=== PATIENT | male | born 1950 | race Caucasian/White ===

== ENCOUNTER → 2017-09-22 12:14 | Outpatient (CLI) | payer MEDICARE, OTHER, SELFPAY ==
--- NOTE | 2017-09-22 12:22 | XR_ITS ---
XR chest 2V HISTORY: ITS.REASON: AMIODARONE SURVEILLANCE ORDERING PHYSICIAN: SAMI Childress PATIENT AGE: 67 years COMPARISON: 04/15/2017 FINDINGS: Normal heart size. Biventricular pacemaker with right atrial lead also noted. Calcified nodes are present in the laurie and there is a calcified granuloma in the left upper lobe. The right hemidiaphragm is elevated. No lobar consolidation or collapse. No interstitial process apparent. Mild degenerative changes thoracic spine. IMPRESSION: 1. Cardiac pacemaker device present with evidence of old granulomatous disease. 2. No evidence of amiodarone lung toxicity
== END ==
PROVIDERS: PCP Family Medicine; Visit Provider Physician Assistant
DX: Z51.81 Encounter for therapeutic drug level monitoring (principal)
CPT/HCPCS: 71046

== ENCOUNTER → 2018-02-06 10:02 | Outpatient (CLI) | payer MEDICARE, OTHER, SELFPAY ==
--- NOTE | 2018-02-06 10:08 | XR_ITS ---
XR chest 2V HISTORY: ITS.REASON: LONGTERM HIGH RISK MED,A-FIB ORDERING PHYSICIAN: Brock Dawson PATIENT AGE: 67 years COMPARISON: PA and lateral chest 09/22/2017 FINDINGS: The cardiomediastinal silhouette and pulmonary vascularity are within normal limits. The lungs are clear without infiltrates, suspicious nodules, or pleural effusions. The left-sided cardiac pacemaker is again noted with 3 electrodes. There are calcified hilar nodes bilaterally. There is no pleural fluid. No acute bony abnormalities. IMPRESSION: Negative chest, no acute finding
== END ==
PROVIDERS: Visit Provider Internal Medicine Clinical Cardiac Electrophysiology
DX: I48.91 Unspecified atrial fibrillation (principal); Z79.899 Other long term (current) drug therapy
CPT/HCPCS: 71046

== ENCOUNTER → 2018-08-16 11:39 | Outpatient (CLI) | payer MEDICARE, OTHER, SELFPAY ==
--- NOTE | 2018-08-16 11:44 | NM_ITS ---
History and Indications: History of [place], hypertension, hyperlipidemia, family history, fatigue, palpitations and history of atrial fibrillation. Procedure: Patient received a 0.4 mg of intravenous Lexiscan, resting heart rate was 60 bpm, resting blood pressure 126/69, with intravenous Lexiscan maximum heart rate achieved was 61 beats per minute which is less than 85% of the maximum predicted heart rate and a blood pressure was 86/44. With Lexiscan patient complained of stomach discomfort, requiring intravenous Aminophyllin to reverse the symptoms. Electrocardiogram: Resting electrocardiogram showed a sinus rhythm, left atrial enlargement, electronically paced rhythm. With Lexiscan there is less than 1.[address] segment depression noted from the baseline EKG. The EKG portion of the Lexiscan Myoview is nondiagnostic. Cardiac stress and resting SPECT images: Cardiac stress and rest SPECT images were obtained using technetium 99 Myoview 32.1 mCi stress and 10.2 mCi at rest. Gated SPECT further analysis of segmental wall motion and calculation of ejection fraction also done. Cardiac stress and rest SPECT images show uniform myocardial activity without segmental perfusion abnormality, computer derived ejection fraction is 42% with no regional wall motion abnormality, right ventricle is normal size and contractility. Left ventricle is dilated both stress and rest. Conclusion: 1. The EKG portion of the Lexiscan Myoview is nondiagnostic. 2. No scintigraphic evidence of reversible ischemia seen, computer derived ejection fraction is 42% with no regional wall motion abnormality, right ventricle is normal size and contractility, left ventricle is dilated both stress and rest. 3. Abnormal Lexiscan Myoview study.
--- NOTE | 2018-08-16 12:28 | HMH.ITSHM ---
Current Home Medications as stated by this patient Lorenzo Hammer or cash applications representative. []ASA AMIODARONE BISOPROLOL ROSOVASTIN DULOXETINE WARFARIN
== END ==
PROVIDERS: PCP Physician Assistant; Visit Provider Physician Assistant
DX: R07.9 Chest pain, unspecified (principal); I48.91 Unspecified atrial fibrillation; R00.2 Palpitations; E78.5 Hyperlipidemia, unspecified
CPT/HCPCS: 78452; 93017; A9502; J2785

== ENCOUNTER → 2018-12-09 10:06 | Outpatient (CLI) | payer MEDICARE, OTHER, SELFPAY ==
--- NOTE | 2018-12-09 10:21 | XR_ITS ---
XR shoulder LT min 2V Ordering Physician: Marco Churchill MD Patient Age: 68 years: Male HISTORY: ITS.REASON: ACUTE PAIN OF LEFT SHOULDER Pain for 3 weeks TECHNIQUE: 3 views left shoulder COMPARISON :Chest film from 08/03/2018 FINDINGS The glenohumeral joint appears intact. The humeral head and neck are intact. Normal relationships. Trace degenerative changes left AC joint. Scapula appears intact. Upper left lung left lung apex upper left ribs appear intact. Pacemaker overlying upper left chest as was seen on July 2018.. IMPRESSION: Left shoulder intact. No acute findings Glenohumeral joint intact, unremarkable. Mild degenerative changes AC joint.
== END ==
PROVIDERS: PCP Family Medicine; Visit Provider Family Medicine
DX: M25.512 Pain in left shoulder (principal)
CPT/HCPCS: 73030

== ENCOUNTER → 2019-03-21 14:33 | Outpatient (CLI) | payer MEDICARE, OTHER, SELFPAY ==
--- NOTE | 2019-03-21 14:47 | XR_ITS ---
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 Mild prominence of the left ventricle. No evidence of CHF. The right hemidiaphragm is elevated with compressive atelectatic changes in the right lung base. The remaining lungs are clear. No acute bony anomalies. IMPRESSION: As above, no change with no acute finding.
== END ==
PROVIDERS: PCP Family Medicine; Visit Provider Internal Medicine Clinical Cardiac Electrophysiology
DX: Z79.899 Other long term (current) drug therapy (principal)
CPT/HCPCS: 71046

== ENCOUNTER → 2019-09-11 08:53 | Outpatient (CLI) | payer MEDICARE, OTHER, SELFPAY ==
--- NOTE | 2019-09-11 09:01 | XR_ITS ---
PROCEDURE: XR CHEST 2V CLINICAL HISTORY: UPPER BACK PAIN COMPARISON: CXR2V XR chest 2V from 09/22/2017 CXR2V XR chest 2V from 02/06/2018 CXR2V XR chest 2V from 08/03/2018 FINDINGS: There is a biventricular pacemaker present also with a right atrial lead. Borderline cardiomegaly. The pacemaker is from the left subclavian approach and not significantly changed. No CHF. Right hemidiaphragm is elevated with atelectatic changes in the right lung base which have developed since the previous exam. There are degenerative changes in the thoracic spine IMPRESSION: Elevated right hemidiaphragm with right basilar atelectasis with biventricular pacemaker in place Dictated by: Eddie Villeda MD 09/11/2019 15:08 Electronically signed by Eddie Villeda MD in [place] 09/11/2019 15:08
== END ==
PROVIDERS: PCP Family Medicine; Visit Provider Family Medicine
DX: M54.9 Dorsalgia, unspecified (principal)
CPT/HCPCS: 71046

== ENCOUNTER → 2019-12-21 11:00 | Outpatient (CLI) | payer MEDICARE, OTHER, SELFPAY ==
--- NOTE | 2019-12-21 11:11 | XR_ITS ---
PROCEDURE: XR CHEST 2V CLINICAL HISTORY: AMIODARONE SURVEILLANCE COMPARISON: CXR2V XR chest 2V from 02/06/2018 CXR2V XR chest 2V from 08/03/2018 XR CHEST 2V from 09/11/2019 FINDINGS: There is elevation the right hemidiaphragm with right basilar atelectatic or fibrotic change. This is similar when compared to the previous exam. Biventricular pacemaker is present from left subclavian approach with a right atrial lead. There is evidence of old granulomatous disease. No evidence of CHF. No acute bony findings. IMPRESSION: Biventricular pacemaker present with elevated right hemidiaphragm and right basilar atelectasis overall not significantly changed. The findings are not convincing for amiodarone lung toxicity. Dictated by: Eddie Villeda MD 12/21/2019 12:33 Electronically signed by Eddie Villeda MD in [place] 12/21/2019 12:33
[2019-12-21 12:43] LABS: Chloride 104 mmol/L (98-107); Potassium 4.4 mmoL/L (3.5-5.1); Sodium 140 mmol/L (136-145)
[2019-12-21 12:45] LABS: Alanine Aminotransferase 17 U/L (12-78); Aspartate Amino Transferase 29 U/L (17-59); Blood Urea Nitrogen 18 mg/dl (9-20); Estimated Glomerular Filt Rate 55 ml/min (>60); GFR (African American) 66 ML/MIN (>60)
[2019-12-21 12:46] LABS: Albumin Level 4.1 g/dl (3.5-5.0); Albumin/Globulin Ratio 1.8 (1.1-1.8); Alkaline Phosphatase 52 U/L (38-126); Anion Gap 9.4 mEq/L (5-15); Bilirubin,Total 0.9 mg/dl (0.2-1.3); Calcium 9.2 mg/dl (8.4-10.2); Carbon Dioxide 31 mmol/L (22.0-30.0); Globulin 2.3 g/dL (1.3-3.2); Glucose 88 mg/dl (74-100); Total Protein,Serum 6.4 g/dl (6.3-8.2)
[2019-12-21 13:17] LABS: Thyroid Stimulating Hormone < 0.02 uIU/mL (0.465-4.68)
== END ==
PROVIDERS: PCP Family Medicine; Visit Provider Internal Medicine Clinical Cardiac Electrophysiology
DX: I48.91 Unspecified atrial fibrillation (principal); Z79.899 Other long term (current) drug therapy
CPT/HCPCS: 36415; 71046; 80053; 84443

== ENCOUNTER → 2020-11-28 09:22 | Outpatient (CLI) | payer MEDICARE, OTHER, SELFPAY | PROVIDERS: PCP Family Medicine; Visit Provider Physician Assistant Medical | DX: Z20.822 Contact with and (suspected) exposure to COVID-19 (principal) | CPT/HCPCS: U0003 ==

== ENCOUNTER 2021-06-22 17:38 | Emergency (ER) | payer MEDICARE, OTHER, SELFPAY ==
--- NOTE | 2021-06-22 17:36 | ECG_ITS ---
APPROVED REPORT Exam: Resting ECG HR:101 bpm ECG Measurements Heart Rate 101 AXES AL 138 P 40 QRSd 108 QRS -61 QT 360 T 87 QTc 466 Conclusion Electronic ventricular pacemaker Electronically signed by : Taurus Boyd MD 06/28/2021 08:32:48
[2021-06-22 17:39] VITALS: BP 134/93; PULSE 105; RESP 18; TEMP 37; O2SAT 96; BMI 24.3
[2021-06-22 17:40] VITALS: BMI 24.3
--- NOTE | 2021-06-22 17:41 | XR_ITS ---
PROCEDURE INFORMATION: Exam: XR Chest Exam date and time: 06/22/2021 5:41 PM Age: 70 years old Clinical indication: Pain; Other: Shocked by defibulator; Prior surgery; Surgery date: 6+ months; Additional info: Shocked by defib TECHNIQUE: Imaging protocol: XR of the chest. Views: 1 view. COMPARISON: CR XR CHEST 2V 12/21/2019 11:22 AM FINDINGS: Tubes, catheters and devices: AICD in place with leads in unchanged position. Lungs: Elevated right hemidiaphragm with right basal atelectasis/scarring, unchanged. No appreciable pulmonary edema. No focal consolidation. Pleural spaces: No large pleural effusion. No pneumothorax. Heart/Mediastinum: Cardiomediastinal silhouette is unchanged. Bones/joints: No acute osseous abnormality. Soft tissues: Unremarkable. IMPRESSION: No evidence of acute cardiopulmonary disease.
--- NOTE | 2021-06-22 17:50 | HMH.EDGENADL ---
ED Disposition Clinical Impression: ICD (implantable cardioverter-defibrillator) discharge Chest pain Qualifiers: Chest pain type: other chest pain Qualified Code(s): R07.89 - Other chest pain Disposition: Home, Self-Care Condition on Discharge: Good Additional Instructions: With cardiology tomorrow at 11 AM, experienced any repeat chest pain, or if any concerns overnight return to the emergency department. Referrals: Marco Churchill MD [Primary Care Provider] - Vikram Blackmon MD [Staff Physician] - - Critical Care Critical Care Time: No Attestation: On 06/22/21, the high probability of a clinically significant, sudden or life threatening deterioration of the following system(s) required my full and direct attention, intervention and personal management. The time I documented below is in addition to time spent performing reported procedures but includes the following listed in this critical care notation. Medical Decision Making - Medical Records Medical records reviewed: Yes: I reviewed the patient's medical records. - Edwin Inquiry Pt receiving controlled substance: No Vital Signs: 06/22/21 17:39 06/22/21 18:30 Temperature 98.6 F Temperature Source Oral Pulse Rate 86 Pulse Rate [Left Radial] 105 H Respiratory Rate 18 Blood Pressure 120/79 Blood Pressure [Right Arm] 134/93 H Blood Pressure Mean [Right Arm] 106 Blood Pressure Source Automatic Cuff Blood Pressure Source [Right Arm] Automatic Cuff Blood Pressure Position Sitting Blood Pressure Position [Right Arm] Sitting 02 Sat by Pulse Oximetry 96 96 Oxygen Delivery Method Room Air Room Air - Lab Data Lab results reviewed: Yes: I reviewed the patient's lab results. Lab Results 06/22/21 17:30: WBC 9.3, RBC 4.78, Hgb 15.6, Hct 47.9, MCV 100.2 H, MCH 32.5 H, MCHC 32.5, RDW 13.1, Plt Count 227, MPV 9.2, Neut % (Auto) 64.1, Lymph % (Auto) 21.6, [place] % (Auto) 8.6, Eos % (Auto) 4.1, Baso % (Auto) 1.5, Neut # (Auto) 5.9, Lymph # (Auto) 2.0, [place] # (Auto) 0.8, Eos # (Auto) 0.4, Baso # (Auto) 0.1 06/22/21 17:30: Sodium 144, Potassium 3.7, Chloride 104, Carbon Dioxide 29, Anion Gap 14.7, BUN 16, Creatinine 1.10, Estimated Creat Clear 79, Estimated GFR 66, Est GFR ( Amer) 80, Glucose 93, Calcium 9.8, Troponin I 0.09 H Result diagrams: 06/22/21 17:30 06/22/21 17:30 Orders (Tests/Meds): ORDERS Category Date Time Status Troponin I Q3H Lab 06/22/21 20:15 Received Troponin I Q3H Lab 06/22/21 23:45 Ordered Medical Decision Narrative: Patient is a 70-year-old male presents emergency department with chief complaint of icd appointment. Patient states this occurred 3 times this afternoon. He does admit not having taken his bisoprolol for 3 days. Diagnosis in this patient includes ACS, A. fib with RVR, pacemaker deployment among others. Given this interrogated the pacemaker, and EKG, CBC, CMP troponin, chest x-ray. Troponin showed mild elevation, believe this is consistent with the pacemaker deployment as were opposed to ACS however will obtain a second troponin. Patient well-appearing here in the emergency department. ECG showed paced rhythm. The patient did have bouts of Atrial tackycardia for which the pacemaker deployed appropriately. Patient instructed to taking his home medication, he can follow-up at 11 AM in clinic with cardiology tomorrow morning. General Adult HPI - General Stated complaint: SHOCKED BY DEFIB Time Seen by Provider: 06/22/21 17:51 - History of Present Illness HPI narrative: Patient is a 70-year-old male presenting to the emergency department with chief complaint of ICD shock. Patient states that he was feeling well with working on at the back of a tractor, straining did not have any chest pain did not have any shortness of breath when he felt his ICD go off. He states that he went out 3 times in public at a mule kicking him in his chest. He does admit that he has not recently taken one of his med
--- NOTE | 2021-06-22 18:06 | PC.NURSE ---
CALLED [employer] FOR INTERROGATION OF AICD
[2021-06-22 18:14] LABS: Basophils # 0.1 K/mm3 (0-0.2); Basophils % 1.5 % (0.1-2.0); Eosinophils # 0.4 K/mm3 (0.0-0.4); Eosinophils % 4.1 % (0.1-12.0); Hematocrit 47.9 % (42.0-52.0); Hemoglobin 15.6 g/dL (14.1-18.0); Lymphocytes % 21.6 % (10-50); Mean Corpuscular HGB Conc 32.5 g/dL (31.8-35.4); Mean Corpuscular Hemoglobin 32.5 pg (27.0-31.2); Mean Corpuscular Volume 100.2 fl (80-94); Mean Platelet Volume 9.2 fl (7.4-10.4); Monocytes # 0.8 K/mm3 (0.1-1.0); Monocytes % 8.6 % (1.7-9.3); Neutrophils # 5.9 K/mm3 (1.8-7.8); Neutrophils % 64.1 % (37.0-80.0); Platelet Count 227 K/mm3 (142-424); Red Blood Count 4.78 M/mm3 (4.60-6.20); Red Cell Distribution Width 13.1 % (11.5-17.5); White Blood Count 9.3 K/mm3 (4.8-10.8)
[2021-06-22 18:17] LABS: Chloride 104 mmol/L (98-107); Potassium 3.7 mmoL/L (3.5-5.1); Sodium 144 mmol/L (136-145)
[2021-06-22 18:20] LABS: Anion Gap 14.7 mEq/L (5-15); Blood Urea Nitrogen 16 mg/dl (9-20); Carbon Dioxide 29 mmol/L (22.0-30.0); Creatinine Clearance Estimated 79 mL/min (50-200); Estimated Glomerular Filt Rate 66 ml/min (>60); GFR (African American) 80 ML/MIN (>60)
[2021-06-22 18:21] LABS: Calcium 9.8 mg/dl (8.4-10.2); Glucose 93 mg/dl (74-100)
[2021-06-22 18:30] VITALS: BP 120/79; PULSE 86; O2SAT 96
[2021-06-22 18:33] LABS: Troponin I 0.09 ng/ml (0.00-0.034)
--- NOTE | 2021-06-22 20:03 | PC.NURSE ---
Ember with Cardiology assisted pacemaker interrogation with rep. Per Francesco the rep, Pt was in atrial tach and shocked 3x. Increased the threshold from of vfib from 200 to 210 and therapy from 5 sec to 10 sec. Pt has not been taking his Bisoprolol for several days d/t forgetting to pick it up . Pt to take bisoprolol and follow up with cardiology tomorrow. Pt seees outside cardiology but can see Dr. Blackmon tomorrow at 11am if he is unable to see his own.
--- NOTE | 2021-06-22 20:15 | PC.NURSE ---
notified MD l[facility] critical trop
[2021-06-22 21:40] LABS: Troponin I 1.15 ng/ml (0.00-0.034)
--- NOTE | 2021-06-22 21:42 | PC.NURSE ---
Dr. Santos s/collette Esquivel
[2021-06-22 21:51] VITALS: BP 117/78; PULSE 80; RESP 16; TEMP 37; O2SAT 96
== END 2021-06-22 21:54 | disposition home or self-care (01) ==
PROVIDERS: Emergency Provider Emergency Medicine; PCP Family Medicine
DX: T82.118A Breakdown (mechanical) of other cardiac electronic device, initial encounter (principal); Z45.02 Encounter for adjustment and management of automatic implantable cardiac defibrillator; Z88.0 Allergy status to penicillin; Z87.891 Personal history of nicotine dependence
CPT/HCPCS: 71045; 80048; 84484; 85025; 93005; 96365; 99283

== ENCOUNTER → 2021-09-02 14:40 | Outpatient (CLI) | payer MEDICARE, OTHER, SELFPAY ==
[2021-09-02 15:07] LABS: Adenovirus,PCR Not Detected (NotDetected); Bordetella Pertussis Not Detected (NotDetected); Chlamydophila Pneumoniae, PCR Not Detected (NotDetected); Coronavirus 229E Not Detected (NotDetected); Coronavirus NL63 Not Detected (NotDetected); Coronavirus OC43 Not Detected (NotDetected); Coronovirus HKU1,PCR Not Detected (NotDetected); Human Metapneumovirus Not Detected (NotDetected); Influenza A, PCR Not Detected (NotDetected); Influenza AH1, 2009 Not Detected (NotDetected); Influenza AH1, PCR Not Detected (NotDetected); Influenza AH3,PCR Not Detected (NotDetected); Influenza B, PCR Not Detected (NotDetected); Mycoplasma Pneumoniae, PCR Not Detected (NotDetected); Parainfluenza 1, PCR Not Detected (NotDetected); Parainfluenza 2, PCR Not Detected (NotDetected); Parainfluenza 3, PCR Not Detected (NotDetected); Parainfluenza 4, PCR Not Detected (NotDetected); Respiratory Syncytial Virus Not Detected (NotDetected); Rhinovirus/Enterovirus Not Detected (NotDetected)
[2021-09-02 15:10] LABS: Mean Corpuscular HGB Conc 32.8 g/dL (31.8-35.4); Mean Corpuscular Hemoglobin 33.1 pg (27.0-31.2); Mean Corpuscular Volume 101.2 fl (80-94); Red Blood Count 4.84 M/mm3 (4.60-6.20); White Blood Count 5.2 K/mm3 (4.8-10.8)
[2021-09-02 15:11] LABS: Basophils # 0.1 K/mm3 (0-0.2); Basophils % 1.5 % (0.1-2.0); Eosinophils # 0.3 K/mm3 (0.0-0.4); Eosinophils % 5.1 % (0.1-12.0); Lymphocytes # 1.5 K/mm3 (0.7-4.5); Lymphocytes % 28.3 % (10-50); Mean Platelet Volume 8.9 fl (7.4-10.4); Monocytes # 0.4 K/mm3 (0.1-1.0); Monocytes % 7.7 % (1.7-9.3); Neutrophils % 57.3 % (37.0-80.0); Platelet Count 161 K/mm3 (142-424)
[2021-09-02 15:41] LABS: Strep Scrn Group A (Rapid) Negative (Negative)
[2021-09-02 17:35] LABS: Coronavirus 19, PCR Detected (NotDetected)
== END ==
PROVIDERS: PCP Family Medicine; Visit Provider Family Medicine
DX: U07.1 COVID-19 (principal)
CPT/HCPCS: 36415; 85025; 87430; 87581; 87632; 87798; C9803; U0003; U0005

== ENCOUNTER → 2022-10-28 12:07 | Outpatient (CLI) | payer MEDICARE, OTHER, SELFPAY ==
--- NOTE | 2022-10-28 12:12 | XR_ITS ---
FINAL REPORT CLINICAL HISTORY: BRONCHITIS COMPARISON: 06/22/2021 FINDINGS: TWO-VIEW CHEST The heart size is normal. There is an elevated right hemidiaphragm. There is mild right base atelectasis or scar. Left subclavian ICD is present. There is no pneumothorax. IMPRESSION: Right base atelectasis or scar. Reviewed, Interpreted and Dictated by Messi Wise III, MD Transcribed by Misty Robins Authenticated and [facility]
== END ==
PROVIDERS: PCP Family Medicine; Visit Provider Physician Assistant
DX: J40 Bronchitis, not specified as acute or chronic (principal)
CPT/HCPCS: 71046

== ENCOUNTER 2023-06-25 13:39 | Emergency (ER) | payer MEDICARE, OTHER, SELFPAY ==
[2023-06-25 14:00] VITALS: BP 123/76; PULSE 64; RESP 17; TEMP 36.7; O2SAT 98; BMI 23.3
--- NOTE | 2023-06-25 14:11 | EXP.UTC ---
Discharge Plan Disposition Patient Disposition: Home, Self-Care Condition: Good Prescriptions Prescriptions: New clindamycin HCl 300 mg capsule 300 mg PO Q8H 7 Days Qty: 21 0RF Triple Antibiotic 3.5mg-400 unit- 5,000 unit/gram ointment 1 applic topical TID 10 Days Qty: 30 0RF Rx Instructions: apply to opening on finger No Action rosuvastatin 20 MG tablet 20 mg PO DAILY duloxetine 30 MG capsule,delayed release(DR/EC) 30 mg PO DAILY bisoprolol fumarate 5 mg tablet 5 mg PO DAILY Referrals Follow up/Referrals: Marco Churchill MD [Primary Care Provider] - See instructions Activity Restrictions/Add. Instructions Additional Instructions/Restrictions: Take medication as prescribed Follow up with Hand you may call office for appointment [phone] Soak hand in warm water and epson salt may help to clean the wound GO straight to ER if you have worsening of swelling or become unable to bend or move finger Clinical Impressions Clinical Impression: Foreign body finger Instructions Patient Instructions: Clindamycin, DI for Wound Infection Discharge ED Provider: Felicita Hunter [facility] [place] General Stated complaint: splinter in right thumb Mode of Arrival: Ambulatory Source of Information: Patient Limitations: No Limitations Time Seen by Provider: 06/25/23 14:11 Description of Symptoms (Recalled from Triage Doc. by RN): PATIENT C/O SPLINTER IN THUMB SINCE YESTERDAY HEENT Symptoms (Recalled from RN notes): No Resp Symptoms (Recalled from RN notes): No Skin Symptoms (Recalled from RN notes): Yes MS Symptoms (Recalled from RN notes): No Functional Status (Recalled from RN notes): WNL History of Present Illness Provider Complaint: Patient states that he has a piece of wood that went into his right thumb States that he was able to get some of it out but feels like a large piece remains deep into his thumb States that today his thumb is sore and hurts to touch it Related Data Home Medications Medication Instructions Recorded Confirmed duloxetine 30 mg capsule,delayed 30 mg PO DAILY Anxiety 08/03/18 06/23/21 release rosuvastatin 20 mg tablet 20 mg PO DAILY High cholesterol 08/03/18 06/23/21 bisoprolol fumarate 5 mg tablet 5 mg PO DAILY htn 06/23/21 06/23/21 Previous Rx's Medication Instructions Recorded clindamycin HCl 300 mg capsule 300 mg PO Q8H 7 days #21 caps 06/25/23 neomycin-bacitracn Zn-polymyx 3.5 1 applic topical TID 10 days #30 06/25/23 mg-400 unit-5,000 unit/gram top grams oint (Triple Antibiotic) Allergies Allergy/AdvReac Type Severity Reaction Status Date / Time Penicillin Allergy Unknown Uncoded 06/25/19 15:39 Worker's Comp Is this a Worker's Comp case?: No [facility] Disclaimer: The information contained in this section may have been updated after the patient was seen, as this information can be updated by other users. Social History Smoking Status: Former smoker alcohol intake: never current occupational status: retired Travel in the last 8 weeks: Inside the [place] ROS Obtained: Yes All systems reviewed & no additional complaints except as documented and Yes Systems reviewed as appropriate & no additional complaints except as documented ENT Ears, Nose, Mouth, and Throat: Reports system reviewed and no additional complaints, except as documented and Reports as per HPI Cardiovascular Cardiovascular: Reports system reviewed and no additional complaints, except as documented and Reports as per HPI Respiratory Respiratory: Reports system reviewed and no additional complaints, except as documented and Reports as per HPI Gastrointestinal Gastrointestingal: Reports system reviewed and no additional complaints, except as documented and as per HPI Musculoskeletal Musculoskeletal: Reports system reviewed and no additional complaints, except as documented and Reports as per HPI Integumentary/Breasts Skin/Breast: Reports system review
--- NOTE | 2023-06-25 14:16 | XR_ITS ---
PROCEDURE INFORMATION: Exam: XR Right Hand Exam date and time: 06/25/2023 2:22 PM Age: 72 years old Clinical indication: Injury or trauma; Other: Wood stuck in 1st digit; Additional info: Foreign body right thumb TECHNIQUE: Imaging protocol: Radiologic exam of the right hand. Views: 3 or more views. Total images: 3 COMPARISON: No relevant prior studies available. FINDINGS: Bones/joints: Degenerative changes of the interphalangeal joints. No evidence of acute fracture or dislocation. Soft tissues: No other radiopaque foreign bodies. Soft tissues are within normal limits. Other findings: Radiopaque density overlies the middle phalanx of the index finger. IMPRESSION: 1. Radiopaque density overlies the middle phalanx of the index finger. 2. No other radiopaque foreign bodies. 3. Degenerative changes of the interphalangeal joints. 4. No evidence of acute fracture or dislocation.
[2023-06-25 15:03] VITALS: BP 123/76; PULSE 64; RESP 17; TEMP 36.7; O2SAT 98
== END 2023-06-25 15:12 | disposition home or self-care (01) ==
PROVIDERS: Emergency Provider Nurse Practitioner; PCP Family Medicine
DX: S60.351A Superficial foreign body of right thumb, initial encounter (principal); Z87.891 Personal history of nicotine dependence; W45.8XXA Other foreign body or object entering through skin, initial encounter
CPT/HCPCS: 73130; 99204; 99212; G0463

== ENCOUNTER 2023-09-27 10:42 | Outpatient (CLI) | payer MEDICARE, OTHER, SELFPAY ==
--- NOTE | 2023-09-27 | XR_ITS ---
FINAL REPORT CLINICAL HISTORY: Lower back pain FINDINGS: LUMBAR SPINE Five views demonstrate no acute fracture. There are moderate degenerative changes with osteophytes. Mild leftward curvature is identified. There is no malalignment. IMPRESSION: Moderate degenerative changes. Reviewed, Interpreted and Dictated by Messi Wise III, MD Transcribed by Misty Robins Authenticated and [facility]
--- NOTE | 2023-09-27 | XR_ITS ---
FINAL REPORT CLINICAL HISTORY: Rt elbow pain FINDINGS: Right elbow Three views were obtained. There is no acute fracture or dislocation. There are mild degenerative changes. Posterior soft tissue swelling is seen. There is small calcification adjacent to the radial head. IMPRESSION: Degenerative changes as above. Reviewed, Interpreted and Dictated by Messi Wise III, MD Transcribed by Misty Robins Authenticated and [facility]
== END 2023-09-27 23:59 ==
PROVIDERS: PCP Family Medicine; Visit Provider Family Medicine
DX: M25.521 Pain in right elbow (principal); R10.9 Unspecified abdominal pain; M54.50 Low back pain, unspecified
CPT/HCPCS: 72110; 73080

== ENCOUNTER 2024-02-09 06:14 | Outpatient (CLI) | payer MEDICARE, OTHER, SELFPAY ==
--- NOTE | 2024-02-09 06:39 | CT_ITS ---
FINAL REPORT CLINICAL HISTORY: LOW BACK PAIN COMPARISON: None FINDINGS: CT LUMBAR SPINE TECHNIQUE: Axial images were performed through the lumbar spine by computed tomography. Sagittal and coronal reconstruction images were also performed. This study was performed with techniques to keep radiation doses as low as reasonably achievable, (ALARA). Individualized dose reduction techniques using automated exposure control or adjustment of mA and/or kV according to the patient's size were employed. FINDINGS: No fracture is present. Minimal dextroscoliosis is present. T12-L1: There is a moderate annular bulge with mild central canal stenosis. L1-L2: A moderate annular bulge is present with mild central canal stenosis and mild bilateral neural foraminal narrowing. L2-L3: A moderate annular bulge is present with moderate central canal stenosis and moderate neural foraminal narrowing. L3-L4: A moderate annular bulge and moderate facet arthropathy is present, with moderate central canal stenosis, and moderate to severe bilateral neural foraminal narrowing. L4-L5: A moderate annular bulge and facet arthropathy are present, with mild central canal stenosis, and moderate bilateral neural foraminal narrowing. L5-S1: A small annular bulge is present with mild facet arthropathy, severe left and moderate right neural foraminal narrowing. IMPRESSION: Multilevel lumbar degenerative changes present with multilevel central canal stenosis, most severe at the L2-3 and L3-4 levels, and multilevel neural foraminal narrowing. Reviewed, Interpreted and Dictated by Alondra Shay MD Transcribed by Yojana Mims Authenticated and [facility]
== END 2024-02-09 23:59 | disposition home or self-care (01) ==
LOC: RAD 06:14
PROVIDERS: PCP Family Medicine; Visit Provider Family Medicine
DX: M51.36 Other intervertebral disc degeneration, lumbar region (principal); M54.50 Low back pain, unspecified; G89.29 Other chronic pain
CPT/HCPCS: 72131

== ENCOUNTER 2025-07-17 12:36 | Outpatient (CLI) | payer MEDICARE, OTHER, SELFPAY ==
--- OUTSIDE RECORDS SUMMARY | 2024-02-01 10:45 | XMS_ITS ---
Author Organization [facility] Address [address] [facility] [address] [place] [id number] Care Team Providers Care Zyglo Inspector Name Role Phone Kerline Marco Primary Care Provider Allergies No Known Allergies Results Component Value Reference Range Notes CT Scan : Spine, lumbosacral , without contrast Reviewed date:02/13/2024 05:08:32 PM Interpretation:Multilevel lumbar degenerative changes present with multilevel central jeff stenosis, most severe L2-3 and L3-4 and multilevel neural foraminal narrowing Performing Lab: Notes/Report: Multilevel lumbar degenerative changes present with multilevel central jeff stenosis, most severe L2-3 and L3-4 and multilevel neural foraminal narrowing REASON FOR VISIT back pains Medications Medication SIG (Take, Route, Frequency, Duration) Notes Start Date End Date Status Bisoprolol Fumarate 5 MG Take 1 tablet b y mouth once daily; Duration: 90 Active DULoxetine HCl 30 MG Take 1 capsule by m outh once daily; Duration: 90 Active Albuterol Sulfate HFA 108 (90 Base) MCG/ACT 1 puff Inhalation every 4 hrs, prn 11/24/2023 Active Loratadine 10 MG 1 tab(s) orally once a day; Duration: 30 day(s) 01/21/2020 Active Rosuvastatin Calcium 20 MG TAKE 1 TABLET BY MOUTH ONCE DAILY AT BEDTIME; Duration: 90 Active Vitamin D3 50 MCG (1999) 2 cap(s) orally once a day 08/23/2019 Active Sildenafil Citrate 20 MG 1 to 5 tab(s) o rally once daily as needed 10/20/2018 Active Antifungal Clotrimazole 1 % 1 application Externally Twice a day; Duration: 14 day(s) 01/19/2023 Not-Taking Trelegy Ellipta 100-62.5-25 MCG/ACT 1 puff Inhalation Once a day 11/24/2023 Active Problems Problem Type SNOMED Code ICD Code Onset Dates Problem Status W/U Status Risk Notes Problem Chronic pain (06524864) Other chronic pain (G89.29) Active confirmed Problem Degenerative disc disease (73316575) DDD (degenerativ e disc disease), lumbar (M51.36) Active confirmed Vital Signs Blood pressure systolic 112 mm Hg 02/01/20 24 Blood pressure diastolic 70 mm Hg 024 Heart Rate 73 /min 02/01/2024 Height 74.50 in 02/01/2024 Weight 180.8 lbs 02/01/2024 BMI 22.90 kg/m2 02/01/2024 Encounters Encounter Location Date Provider Diagnosis Lia [address] [facility] [address] [place] [id number] 02/01/2024 Marco Churchill Low back pain, unspecified M54.50 ; Other chronic pain G89.29 and DDD (degenerative disc disease), lumbar M51.36 Assessments Encounter Date Diagnosis (ICD Code) Assessment Notes Treatment Notes Treatment Clinical Notes Section Notes 02/01/2024 Low back pain, unspecified (ICD-10 - M54.50) 02/01/2024 Other chronic pain (ICD-10 - G89.29) 02/01/2024 DDD (degenerative disc disease), lumbar (ICD-10 - M51.36) Plan Of Treatment Next Appt Details Follow Up: via phone to repo rt test results, Reason: Provider Name:Marco Simental ry, 09/30/2025 09:15:00 AM, [address], [address], [place], [id number], Progress Notes * Lorenzo HAMMER ADOB: 2 (74 yo M)Acc No.[id number]:02/01/2024 Progress Notes Patient: Shanna IDALIA Lorenzo Parikh Provider: Carito Churchill M.D. :1950 A ge:73 Y S ex:Male Date:02/01/2024 Address:[address] [place] [address] [place] D[place], [id number] Subjective: * Chief Complaints: * 1 . Back pains. * HPI: Cisco fitzgerald back: 73 year old male presents with c/o Low Back Pain P t complains of ongoing low back pain. States the he has had x-rays and was told he has arthritis in his spine. Pt states he does not feel like it should hurt as bad as it does with just arthritis . Pt states pain is going across his lower back now and is worsening over time. * ROS: D ERMATOLOGY: no R wenceslao. n o H ernestina. G ASTROENTEROLOGY: no N ausea. n o V omiting. U ROLOGY: no D ifficulty urinating. n o B lood in urine. * Medical History: V itamin D Deficiency, Left Bundle Branch Block, Idiopathic Systolic Congestive Heart Failure: EF= 35% at Left Heart Cath November 2013; EF=45%, 2013 , EF 40%- 01/2017, A-Fib, Dr. Dawson, s/p Watchman Implant, 06/2017, CHF, 06/2017, Depression, GERD, Nonischemic Cardiomyopathy, 06/2017, Pacemaker, [place] - Brain Bleed 01/29/2018 . * Surgical History: H ernia Repair- [place] 1974, Heart cath - [place] 11/2013, Carotid Artery - RT Blockage - [facility] 03/01/2018, Watchman Implant 2020. * Hospitalization/Major Diagno stic Procedure: S troke- [place] [facility] 01/30-, Hypertension- [facility] 07/2018. * Family History: F ather: , stroke, hypertension, diabetes, throat cancer. M other: , hypertension, heart disease. 1 brother(s) . 1 son(s) - healthy. . * Social History: C URRENT TOBACCO USE S moking Status: Patient does smoke, number of cigarettes per day: 1, Smoking preference: cigars. C affeine: yes, frequency: 2 cups a day. Exercise: yes, walk. Marital Status: . Alcohol: Yes, occasional. Sexually active: yes. * Medications: T aking Sildenafil Citrate 20 MG Tablet 1 to 5 tab(s) orally once daily as needed , Taking Vitamin D3 50 MCG (2000 UT) Capsule 2 cap(s) orally once a day , Taking Trelegy Ellipta 100-62.5-25 MCG/ACT Aerosol Powder Breath Activated 1 puff Inhalation Once a day , Taking Albuterol Sulfate HFA 108 (90 Base) MCG/ACT Aerosol Solution 1 puff Inhalation every 4 hrs, prn , Taking Loratadine 10 MG Tablet 1 tab(s) orally once a day , Taking Rosuvastatin Calcium 20 MG Tablet TAKE 1 TABLET BY MOUTH ONCE DAILY AT BEDTIME , Taking Bisoprolol Fumarate 5 MG Tablet Take 1 tablet by mouth once daily , Taking DULoxetine HCl 30 MG Capsule Delayed Release Particles Take 1 capsule by mouth once daily , Not-Taking Antifungal Clotrimazole 1 % Cream 1 application Externally Twice a day , Medication List reviewed and reconciled with the patient * Allergies: N .K.D.A. Objective: * Vitals: W t:180.8, Temp:98.3, BP:112/70, HR:73, Nurse:magan, Ht: 74.50, BMI:22.90. * Examination: G eneral Examination: General Appearance: N AD. A bdomen: bowel sounds present, soft and nontender. B ack: no CVA tenderness. Assessment: * Assessment: 1. L ow back pain, unspecified - M54.50 (Primary) 2 . O ther chronic pain - G89.29 3 . D DD (degenerative disc disease), lumbar - M51.36 Plan: * Treatment: 2.?Other chronic pain?Imaging: CT Scan : Spine, lumbosacral, without contrast (Performed Date - 02/09/2024)?Multilevel lumbar degenerative changes present with multilevel central jeff stenosis, most severe L2-3 and L3-4 and multilevel neural foraminal narrowing* Marce Valencia 02/02/2024 8:53: 01 AM > [facility] 02/09/2024 at 06:30am; m for pt to call Marce Escalante 02/02/2024 10:16:16 AM > pt informed; order Lexi Mojica 02/13/2024 5:08:22 PM > See phone encounter 3.?DDD (degenerative disc disease), lumbar?Imaging: CT Scan : Spine, lumbosacral, without contrast (Performed Date - 02/09/2024)?Multilevel lumbar degenerative changes present with multilevel central jeff stenosis, most severe L2-3 and L3-4 and multilevel neural foraminal narrowing* Marce Valencia 02/02/2024 8:53: 01 AM > [facility] 02/09/2024 at 06:30am; [facility] for pt to call Marce Escalante 02/02/2024 10:16:16 AM > pt informed; order Lexi Mojica 02/13/2024 5:08:22 PM > See phone encounter * Follow Up: v ia phone to report test results * Images: Billing Information: * Visit Code: 18752 Office Visit, Est Pt., Level 3. * Procedure Codes: * Electronic signature of Becca Churchill MD on 07/17/2025 at 12:39 PM EST Sign off status: Pending * Provider: Carito Churchill M.D. Date: 0 02/01/2024 Generated for Artur dalton/Trudi/eTransmitting on: 1 09/17/2024 12:39 PM EST History and Physical Notes * HPI (History of Present Illness) Category Sub-Category Detail Notes Category Not es Lower back Low Back Pain Pt complains of ongoing low back pain. States the he has had x-rays and was told he has arthritis in his spine. Pt states he does not feel like it should hurt as bad as it does with just arthritis . Pt states pain is going across his lower back now and is worsening over time Examination Category Sub-Category Detail Notes Category Not es General Examination Abdomen: bowel sounds present, soft and nontender General Appearance: NAD Back: no CVA tenderness
--- OUTSIDE RECORDS SUMMARY | 2025-03-28 04:15 | XMS_ITS ---
Author Organization [facility] Address [address] [facility] [address] [place] [phone] Care Team Providers Care Crop Duster Name Role Phone Marco Churchill Primary Care [...] Status Risk Notes Problem Hypertensive heart failure (84419381) Hypertensive heart disease with heart failure (I11.0) Active confirmed Problem Congestive heart failure (28425678) Congestive heart failure, unspecified (I50.9) Active confirmed Problem Dilated cardiomyopathy (755887925) Dilated cardiomyopathy (I42.0) Active confirmed Vital Signs Blood pressure systolic 110 mm Hg 03/28/20 25 Blood pressure diastolic 60 mm Hg 025 Heart Rate 61 /min 03/28/2025 Height 74.50 in 03/28/2025 Weight 186.2 lbs 03/28/2025 BMI 23.58 kg/m2 03/28/2025 Encounters Encounter Location Date Provider Diagnosis [facility] [address] [facility] [address] [place] [phone] 03/28/2025 Marco Churchill Paroxysmal atrial fibrillation I48.0 [...] Up: 6 Months fasting, Reason: Provider Name:Marco Simental , 09/30/2025 09:15:00 AM, [address], [address], [place], [place], [phone], Progress Notes * Lorenzo HAMMER ADOB: 2 (74 yo M)Acc No.[id number]:03/28/2025 Progress Notes Patient: Dequan TRINHlynette Parikh Provider: Carito Churchill M.D. :1950 A ge:74 Y S ex:Male Date:03/28/2025 Address:[address] [place], [place] [address]CODI [id number] Subjective: * Chief Complaints: * 1 . [...] 2025. * Surgical History: H ernia Repair- [place] 1974, Heart cath - [place] 11/2013, Carotid Artery - RT Blockage - [facility] 03/01/2018, Watchman Implant 2020. * Hospitalization/Major Diagno stic Procedure: S troke- [place] [facility] 01/30-, Hypertension- [facility] 07/2018. * Family History: F ather: , [...] * Images: Billing Information: * Visit Code: 12478 Office Visit, Est Pt., Level 3. * [...] M.D. Date: 0 03/28/2025 Generated for Artur dalton/Trudi/Iglesia on: 1 09/17/2024 12:39 PM EST History [...]
--- OUTSIDE RECORDS SUMMARY | 2025-05-24 02:00 | XMS_ITS | Encounter Summary ---
Author Organization [facility] ([place], [place], [place], [place], [place]) Address [address] [place] [address] Care Team Providers Care Circuit Designer Name Role Phone Marco Churchill MD Primary Care Provider + [phone] Reason for Visit * Reason Comments Pacemaker /ICD Home Monitoring Encounter Details Date Type Department Care Team (Late st Contact Info) Description 05/24/2025 3:00 AM EDT Clinical Support [facility] [address] [place], [place] [phone] Rhona Newton MD [address] [place] [address] [address] [place] [address] Encounter for adjustment or management of cardiac device (Primary Dx); NICM (nonischemic cardiomyopathy) (HCC); Chronic systolic congestive heart failure (HCC); Persistent atrial fibrillation (HCC); AICD (automatic cardioverter/defibr illator) present Social History Tobacco Use Types Packs/Day Years Used Date Smoking Tobacco: Former Cigarettes 1981 Passive Smoke Exposure: Past Smokeless Tobacco: Never Alcohol Use Standard Drinks/Week Comments Not Currently 0 (1 standard drink = 0.6 oz pur e alcohol) Family and Community Support Answer Mayito e Recorded Help with Day to Day Activities Not on file 08/26/2023 Feeling Lonely or Isolated Not on file 08/26 Educational Attainment Answer Date Chano rded Speak language other than Croatian at home Not on file 08/26/2023 Want help with school or training Not on file 08/26/2023 Substance Use Answer Date Recorded Used prescription meds for non-medical reasons N ot on file 08/26/2023 Used illegal drugs past 12 months Not on file 08/26/2023 Sex and Gender Information Value Date Recorded Sex Assigned at Not on file Legal Sex Male 4:34 PM CDT Gender Identity Not on file Sexual Orientation Not on file documented as of this encounter Plan of Treatment Upcoming Encounters Date Type Department Care Team (Late st Contact Info) Description 10/21/2025 8:30 AM EDT Office Visit [facility] Electrophysiology [address] [place] [address] [place] [address] [place] [address] [address] [place] [address] documented as of this encounter Visit Diagnoses Diagnosis Encounter for adjustment or management of cardiac device- Primary NICM (nonischemic cardiomyopathy) (HCC) Chronic systolic congestive heart failure (HCC) Persistent atrial fibrillation (HCC) Atrial fibrillation AICD (automatic cardioverter/defibrillator) present Automatic implantable cardiac defibrillator in situ documented in this encounter Care Teams Circuit Designer Relationship Specialty Start Date End Date Marco Churchill MD [address] [facility] [address] [place] [address] PCP - General Family Medicine 06/25/22 documented as of this encounter
--- NOTE | 2025-07-17 12:38 | XR_ITS ---
FINAL REPORT CLINICAL HISTORY: cough, sob COMPARISON: 10/28/2022 FINDINGS: PA and lateral views of the chest were obtained. Left AICD is unchanged. The cardiac and mediastinal silhouettes are within normal limits. Fullness in the left hilum was partially obscured on the prior exam but appears worse on today's study. The lungs are otherwise clear.. There is no pleural effusion or pneumothorax. No acute osseous abnormality is identified. IMPRESSION: Fullness of the left hilum appears worse compared to the prior study. Consider CT chest with contrast. Reviewed, Interpreted and Dictated by Taina Wyatt MD Transcribed by Marium Lyle Authenticated and [facility]
--- OUTSIDE RECORDS SUMMARY | 2025-07-17 12:39 | XMS_ITS | Clinical Summary ---
Author Organization [facility] Address [address] [place] [address] Care Team Providers Care Service Operator Name Role Phone Marco Churchill MD Primary Care Provider [phone] Family History Medical History Relation Name Comments Heart attack Father Coronary artery disease Mother Heart failure Mother Heart attack Mother's Brother Relation Name Status Comments Father Mother Mother's Brother Social History Tobacco Use Types Packs/Day Years Used Date Smoking Tobacco: Some Days Alcohol Use Standard Drinks/Week Comments Yes 0 (1 standard drink = 0.6 oz pure alcohol) Alcoholic Drinks/day: Occasional alcohol use Sex and Gender Information Value Date Recorded Sex Assigned at Not on file Legal Sex Male 6:46 PM EDT Gender Identity Not on file Sexual Orientation Not on file Last Filed Vital Signs Vital Sign Reading Time Taken Comments Blood Pressure 117/78 01/15/2021 3:35 PM EDT Pulse 64 01/15/2021 3:35 PM EDT Temperature - - Respiratory Rate - - Oxygen Saturation - - Inhaled Oxygen Concentration - - Weight 88.9 kg (195 lb 15.8 oz) 01/15/2021 3:35 PM EDT Height 190.5 cm (6' 3 ) 10/16/2020 10:1 6 AM EST Body Mass Index 24.5 10/16/2020 10:16 AM EST Plan of Treatment Health Maintenance Due Date Last Done Comments [facility]-Depression Screening 1950 [facility]-/Child/Adol SDOH Screenings 1950 [facility]- SDOH Screenings 1969 [facility]-Adult SDOH Screenings 1969 CT Colonography 1996 Colonoscopy 1996 FIT-DNA 1996 FIT 1996 FOBT 1996 Sigmoidoscopy 1996 [facility]-Colorectal Cancer Screening 1996 [facility]-DTaP,Tdap,and Td Vaccine s (1 - Tdap) 10/18/1996 10/17/1996 [facility]-Pneumococcal Vaccine: 50 + Years (1 of 1 - PCV) 2001 [facility]-Zoster Vaccines (1 of 2) 2001 [id number] Vaccine (4 - 2024- season) 2025 04/29/2021, 11/01/2020, 10/04/2020 [facility]-Influenza Vaccine (#1) 04/15/202506/09, 06/11/2022, 05/25/2018 [facility]-RSV Vaccine: 60+ Years o r (1 - 1-dose 75+ series) 2026 HPV Vaccines Aged Out No longer eligi ble based on patient's age to complete this topic [facility]-HIB Vaccines Aged Out No longer e ligible based on patient's age to complete this topic [facility]-Hepatitis A Vaccines Aged Out No longer eligible based on patient's age to complete this topic [facility]-IPV Vaccines Aged Out No longer e ligible based on patient's age to complete this topic [facility]-Rotavirus Vaccines Aged Out No lo nger eligible based on patient's age to complete this topic Insurance [id number] [id number] MEDICARE Care Teams Service Operator Relationship Specialty Start Date End Date Marco Churchill MD [address] [facility] [address] [place] [facility] - General 12/26/20
--- OUTSIDE RECORDS SUMMARY | 2025-07-17 12:39 | XMS_ITS | Clinical Summary ---
Author Organization [facility] Address [address] [place] [address] Care Team Providers Care Power Grader Operator Name Role Phone Marco Churchill MD Primary Care Provider [phone] Social History Tobacco Use Types Packs/Day Years Used Date Smoking Tobacco: Never Assessed Abuse Screen Answer Date Recorded Unsafe at Home or Work/School Not on file Feels Threatened by Someone? Not on file 07/2023 Does Anyone Keep You from Co ntacting Others or Doint Things Outside the Home? Not on file 05/26/2023 Physical Sign of Abuse Present Not on file 1 Housing Stability Answer Date Recorded Current Living Arrangements Not on file 05/15 Potentially Unsafe Housing Conditions Not on shaina e 05/26/2023 Family and Community Support Answer Mayito e Recorded Help with Day-to-Day Activities Not on file 05/26/2023 Lonely or Isolated Not on file 05/26/2023 Employment Answer Date Recorded Do you want help finding or keeping work or a trevor b? Not on file 05/26/2023 Disabilities Answer Date Recorded Concentrating, Remembering, or Making Decisions Difficulty Not on file 05/26/2023 Doing Errands Independently Difficulty Not on fi le 05/26/2023 Education Answer Date Recorded Help with school or training? Not on file Preferred Language Not on file 05/26/2023 Sex and Gender Information Value Date Recorded Sex Assigned at Not on file Legal Sex Male 12:05 PM EDT Gender Identity Not on file Sexual Orientation Not on file Plan of Treatment Health Maintenance Due Date Last Done Comments ANNUAL PHYSICAL 1950 HEPATITIS C SCREENING 1950 TDAP/TD VACCINES (1 - Tdap) 1970 COLOGUARD 1996 COLON CANCER SCREENING 5 YEAR SIGMOIDOSCOPY 1996 COLONOSCOPY [address] CANCER SCREENING 1996 [address] COLONOGRAPHY 1996 FECAL OCCULT BLOOD TEST 1996 FIT Testing (1 year) 1996 Pneumococcal Vaccine 50+ (1 of 1 - PCV) 2001 ZOSTER VACCINE (1 of 2) 2001 AAA SCREEN ONCE 2016 INFLUENZA VACCINE 03/15/2025 COVID-19 Vaccine ( season) 2025 Medical Devices Implanted Type Area Sociology Teacher Device Identifier Shelf Expiration Date Model / Serial / Lot Imageready Pacemaker- 017 Implanted:2016 (Quantity not on file) [employer] Description:imageready pacem molina Model [id number] DRUG REP CARDIOLOGY [place] Insurance MEDICARE A & B [employer] [place] [id number] Care Teams Power Grader Operator Relationship Specialty Start Date End Date Marco Churchill MD [address] [facility] [address] [facility] [address] [place] [id number] PCP - General Family Medicine 02/08/18
--- OUTSIDE RECORDS SUMMARY | 2025-07-17 12:40 | XMS_ITS | Referral Summary ---
Author Organization [employer] ([place], [place], [place], [place], [place]) Address [address] [place] [address] Care Team Providers Care Energy Operations Vice President Name Role Phone Marco Churchill MD Primary Care Provider + [phone] Encounters Date Type Department Care Team Description 05/24/2025 3:00 AM EDT Clinical Support [facility] Electrophysiology [address] [place] [address] Rhona Newton MD Encounter for adjustment or management of cardiac device (Primary Dx); NICM (nonischemic cardiomyopathy) (HCC); Chronic systolic congestive heart failure (HCC); Persistent atrial fibrillation (HCC); AICD (automatic cardioverter/defibril lator) present 04/22/2025 Travel 04/22/2025 8:30 AM EDT Office Visit [facility] Electrophysiology [address] [place] [address] Rhona Newton MD Persistent atrial fibrillation (HCC) (Primary Dx) from Last 3 Months Allergies No known active allergies Medications rosuvastatin (CRESTOR) 20 MG tablet Take 1 tablet (20 mg total) by mouth nightly. 05/31/2022 Active DULoxetine (CYMBALTA) 30 MG capsule Take 1 capsule (30 mg total) by mouth every evening. 05/31/2022 Active bisoprolol (ZEBETA) 5 MG tablet Take 1 tablet (5 mg total) by mouth every evening. 06/17/2022 Active aspirin 81 MG EC tablet daily. Active cyanocobalamin (VITAMIN B-12) 1000 MCG tablet Take 1 tablet (1,000 mcg total) by mouth every evening. Active Active Problems Problem Noted Date Diagnosed Date Encounter for adjustment or management of cardia c device 09/18/2024 AICD (automatic cardioverter/defibrillator) pres ent 12/28/2023 Persistent atrial fibrillation 07/13/2022 Angina pectoris 06/22/2022 Chronic GERD 06/22/2022 Hypertension 06/22/2022 NICM (nonischemic cardiomyopathy) 09/21/2021 Chronic systolic congestive heart failure 2021 Left bundle branch block (LBBB) 09/21/2021 Resolved Problems Problem Noted Date Diagnosed Date Resolved Date Atrial fibrillation 06/22/2022 12/28/19 Back pain 06/22/2022 12/28/2023 Cardiac conduction disorder 06/22/2022 12/28/2023 Fatigue 06/22/2022 12/28/2023 History of sick sinus syndrome 06/22/2022 12/28/2023 Paroxysmal atrial fibrillati on with rapid ventricular response 09/21/2021 12/28/2023 Paroxysmal ventricular tachycardia 09/05/2020 12/28/2023 Subarachnoid hemorrhage 09/05/202012/13 Social History Tobacco Use Types Packs/Day Years Used Date Smoking Tobacco: Former Cigarettes - 1981 Passive Smoke Exposure: Past Smokeless Tobacco: Never Tobacco Cessation:Counseling Given: Not Answered Alcohol Use Standard Drinks/Week Comments Not Currently 0 (1 standard drink = 0.6 oz pur e alcohol) Family and Community Support Answer Mayito e Recorded Help with Day to Day Activities Not on file 08/26/2023 Feeling Lonely or Isolated Not on file 08/26 Educational Attainment Answer Date Chano rded Speak language other than Nigerian at home Not on file 08/26/2023 Want [...] Sign Reading Time Taken Comments Blood Pressure 118/70 04/22/2025 8:57 AM EDT Pulse 60 04/22/2025 8:57 AM EDT Temperature 36.2 C (97.2 F) 07/14/2022 10:50 AM EST Respiratory Rate 28 07/14/2022 11:27 AM EST Oxygen Saturation 96% 04/22/2025 8:57 AM EDT Inhaled Oxygen Concentration - - Weight 87.1 kg (192 lb) 04/22/2025 8:57 AM EDT Height 190.5 cm (6' 3 ) 04/22/2025 8:57 AM EDT Body Mass Index 24 04/22/2025 8:57 AM EDT Plan of Treatment Upcoming Encounters Date Type Department Care Team (Late st Contact Info) Description 10/21/2025 8:30 AM EDT Office Visit [facility] Electrophysiology [address] [place], [place] [phone] Rhona Newton MD [address] [place] [address] [address] [place] [address] Medical Devices Implanted Type Area Cooling Room Attendant Device Identifier Shelf Expiration Date Model / Serial / Lot Icd-02/22/2017 Implanted:02/22 (Quantity not on file) ICD [employer] [id number] / [id number] / Procedures Procedure Name Priority Date/Time Associated Diagnosis Comments FS_MODEL_IP_ECG 12-LEAD Routine 04/22/2025 9:03 AM EDT Persistent atrial fibrillation (HCC) from Last 3 Months Results * ECG 12 lead (04/22/2025 9:03 AM EDT) us Rhona Newton MD ECG ORDERABLES Final Result from Last 3 Months Insurance [id number] (Home) [address] [place] [id number] MEDICARE PART A B [employer] [place] [id number] Advance Directives For more information, please contact: [phone] * Full Code (Latest Code Status on File) Date Activated Date Inactivated Comments 07/13/2022 10:06 AM 07/14/2022 3:29 PM * Full Code Date Activated Date Inactivated Comments 07/13/2022 5:58 AM 07/13/2022 10:05 AM Care Teams Energy Operations Vice President Relationship Specialty Start Date End Date Marco Churchill MD [address] [facility] [address] [place] [phone] PCP - General Family Medicine 06/25/22
--- OUTSIDE RECORDS SUMMARY | 2025-07-17 12:40 | XMS_ITS | Clinical Summary ---
Author Organization [employer] ([place], [place], [place], [place], [place]) Address [address] [place] [address] Care Team Providers Care Arabic Linguist Name Role Phone Marco Churchill MD Primary Care Provider + [phone] Allergies No known active allergies Medications rosuvastatin [...] Date Resolved Date Atrial fibrillation 06/22/2022 12/28/19 24 Back pain 06/22/2022 12/28/2023 Cardiac conduction disorder 06/22/2022 12/28/2023 Fatigue 06/22/2022 12/28/2023 History of sick sinus syndrome 06/22/2022 12/28/2023 Paroxysmal atrial fibrillati on with rapid ventricular response 09/21/2021 12/28/2023 Paroxysmal ventricular tachycardia 09/05/2020 12/28/2023 Subarachnoid hemorrhage 09/05/202012/13 Encounters Date Type Department Care Team Description 05/24/2025 3:00 AM EDT Clinical Support [facility] Electrophysiology [address] [place] [phone] Rhona Newton MD Encounter for adjustment or management of cardiac device (Primary Dx); NICM (nonischemic cardiomyopathy) (HCC); Chronic systolic congestive heart failure (HCC); Persistent atrial fibrillation (HCC); AICD (automatic cardioverter/defibril lator) present 04/22/2025 8:30 AM EDT Office Visit [facility] Electrophysiology [address] [place] [phone] Rhona Newton MD Persistent atrial fibrillation (HCC) (Primary Dx) 04/22/2025 Travel from Last 3 Months Social History Tobacco Use Types Packs/Day Years [...] Date Chano rded Speak language other than Armenian at home Not on file 08/26/2023 Want [...] Description 10/21/2025 8:30 AM EDT Office Visit [facility] [address] [place] [address] Rhona Newton MD [address] [place] [address] [address] [place] [address] Health Maintenance Due Date Last Done Comments Medicare Initial AWV G0438 CT Colonography 1950 Colonoscopy 1950 Colorectal Cancer Screening 1951 FOBT/FIT 1951 Fit-DNA (Cologuard) 1951 Sigmoidoscopy 1951 Depression Screening (12+) 1963 Hepatitis C Screening 1969 Pneumococcal 50+ years (1 of 2 - PCV) 1970 Shingles Vaccine (Zoster) (1 of 2) 2001 DTAP/TDAP/TD VACCINES (2 - T d or Tdap) 10/17/2006 10/17/1996 Respiratory Syncytial Virus (RSV) Adult or (1 - Risk 60-74 years 1-dose series) 2011 Abdominal Aortic Aneurysm (A AA) Screen 2016 Falls Risk Screening 08/15/2024 COVID-19 VACCINE ( season) 2025 04/29/2021, 11/01/2020, 10/04/2020 Influenza Vaccine (#1) 2025 07/31/2021, 2019 Tobacco Cessation Counseling and Screening (12+) 04/22/2026 04/22/2025 Medical Devices Implanted Type Area Hardware Developer Device Identifier Shelf Expiration Date Model / Serial / Lot Icd-02/22/2017 Implanted:02/22 (Quantity not on file) ICD [employer] [id number] / [id number] / Procedures Procedure Name Priority Date/Time Associated Diagnosis Comments FS_MODEL_IP_ECG 12-LEAD Routine 04/22/2025 9:03 AM EDT Persistent atrial fibrillation (HCC) from Last 3 Months Results * ECG 12 lead (04/22/2025 9:03 AM EDT) us Rhona Newton MD ECG ORDERABLES Final Result from Last 3 Months Insurance [id number] (Home) [address] [place] [id number] MEDICARE PART A B [employer] [place] [id number] Advance Directives For more information, please contact: [phone] * Full Code (Latest Code Status on File) Date Activated Date Inactivated Comments 07/13/2022 10:06 AM 07/14/2022 3:29 PM * Full Code Date Activated Date Inactivated Comments 07/13/2022 5:58 AM 07/13/2022 10:05 AM Care Teams Arabic Linguist Relationship Specialty Start Date End Date Marco Churchill MD [address] [facility] [address] [place] [phone] PCP - General Family Medicine 06/25/22
--- OUTSIDE RECORDS SUMMARY | 2025-07-17 12:40 | XMS_ITS | Patient Health Record ---
[facility] Organization [facility] Address [address] [facility] [address] [place] [id number] Care Team Providers Care Video Producer Name Role Phone Marco Churchill Primary Care Provider Allergies No Known Allergies Results Component Value Reference Range Notes P-Lipid Panel Reviewed date:09/28/2024 09:25:47 AM Interpretation:Normal Performing Lab: Notes/Report: CLIA: [id number] Cortez Hernandez MD, Author [address] [facility] , [address], [place] [address] Test performed by [facility], [facility] Cholesterol 153 <200 mg/dL Triglycerides 144 <150 [...] Results: 77 Units: mg/dL % Change: - P-Comprehensive Metabolic Pa nabeel (CMP) Reviewed date:09/28/2024 09:25:46 AM Interpretation:Normal Performing Lab: Notes/Report: Test performed by [facility] [address] [place], [place] [address] [facility] [place] [address], [place] [address] Cortez Hernandez MD, Author CLIA: [id number] Sodium 145 135-145 mmol/L Potassium 4.3 3.5-5.3 [...] 0.5 <0.2-1.2 mg/dL A/G Ratio 1.9 1.1-2.5 P-Phosphorus Reviewed date:09/28/2024 09:25:47 AM Interpretation:Normal Performing Lab: Notes/Report: Test performed by [facility] [address] [place], [place] [address] [place] [address], [place] [address] Cortez Hernandez MD, Author CLIA: [id number] Phosphorus 3.1 2.5-4.5 mg/dL P-TSH reflex to FT4 Reviewed date:09/28/2024 09:25:47 AM Interpretation:Normal Performing Lab: Notes/Report: Test performed by [facility], [address] , [address], [place] [address] Cortez Hernandez MD, Author CLIA: [id number] TSH reflex to FT4 2.57 0.43-5.25 mU/L P-Microalbumin/Creatinine, R andom Urine Sample Reviewed date:09/28/2024 09:25:47 AM Interpretation:Normal Performing Lab: Notes/Report: [facility] performed by [facility], [address] , [facility] [address], [place] [address] Cortez Hernandez MD, Author CLIA: [id number] Albumin/Creatinine Ratio, Urine <2.2 0-30 ug/m g Microalbumin, Urine, Random <0.3 Creatinine, Urine 131.3 P-Vitamin D 25-Hydroxy Reviewed date:09/28/2024 09:25:47 AM Interpretation:Abnormal Performing Lab: Notes/Report: Test performed by [facility] [address] , [address], [place] [address] Cortez Hernandez MD, Author CLIA: [id number] Vitamin D 25-Hydroxy 29.0 30.0-100.0 ng/mL Interpretation of Vitamin D 25 OH: < 20 ng/mL - Deficiency 20 - 29 ng/mL - Insufficiency 30 - 100 ng/mL - Sufficiency > 100 ng/mL - Super-therapeutic- toxicity may occur above this level. Clinical correlation required. Medications Medication SIG (Take, Route, Frequency, Duration) Notes Start Date End Date Status Aspirin 81 MG 1 tablet Orally Once a day Active Bisoprolol Fumarate 5 MG Take 1 tablet b y mouth once daily; Duration: 90 Active Rosuvastatin Calcium 20 MG TAKE 1 TABLET BY MOUTH AT BEDTIME; Duration: 90 Active DULoxetine HCl 30 MG Take 1 capsule by m outh once daily; Duration: 90 Active Immunizations Vaccine Route Administration Date Status Comme nts xFluzone High Dose-private (65yr&older) Unknown 07/31/2021 Administered Fluzone PF Quad (6-35 months) Unknown 05/25/2018 Administered Fluzone PF Quad (6-35 months) Unknown 06/11/2022 Administered Fluzone High Dose (65yr and older) IM Intramuscular 05/24/2020 Administered Fluzone High Dose (65yr and older) Unknown 06/09/2023 Administered DT, 7 YEARS OR OLDER Unknown 10/17/1996 Administered COVID 19 Pfizer Unknown 04/29/2021 Administered Problems Problem Type SNOMED Code ICD Code Onset Dates Problem Status W/U Status Risk Notes Problem Vitamin D deficiency (86554770) Vitamin D deficiency (E55.9) Active confirmed Problem Seasonal allergy (535638312) Seasonal allergies (J30.2) Active confirmed Problem Paroxysmal atrial fibrillation (508621172) Paroxysmal atrial fibrillation (I48.0) Active confirmed Problem Hypovolemia (505368658) Hypovolemia (E86.1) Active confirmed Problem Hypertensive heart failure (69159998) Hypertensive heart disease with heart failure (I11.0) Active confirmed Problem Ischemic cardiomyopathy (818568160) Ischemic cardiomyopathy (I25.5) Active confirmed Problem Dilated cardiomyopathy (856236144) Dilated cardiomyopathy (I42.0) Active confirmed Problem Hypotension (82728012) Other hypotension (I95.89) Active confirmed Problem Congestive heart failure (34556997) Congestive heart failure, unspecified (I50.9) Active confirmed Problem Depressive disorder (21701620) Depressive disorder (F32.9) Active confirmed Problem Chronic pain (06837083) Other chronic pain (G89.29) Active confirmed Problem Constipation (65966656) Constipation, unspecified constipation type (K59.00) Active confirmed Problem Erectile dysfunction (disorder) (945095363) Erectile dysfunction, unspecified erectile dysfunction type (N52.9) Active confirmed Problem History of nutritional deficiency (38794795863725) History of vitamin D deficiency (Z86.39) Active confirmed Problem Long-term current us e of drug therapy (718132744) Long-term use of high-risk medication (Z79.899) Active confirmed Problem Degenerative disc disease (91870370) DDD (degenerative disc disease), lumbar (M51.36) Active confirmed Problem Chronic systolic heart failure (300872808) Chronic systolic heart failure (I50.22) Active confirmed Problem Pure hypercholesterolemia (410054472) Pure hypercholesterolemia (E78.00) Active confirmed Problem Skin sensation disturbance (66433599) Arm paresthesia, left (R20.2) Active confirmed Problem Allergic rhinitis (43323001) Allergic rhinitis, unspecified seasonality, unspecified trigger (J30.9) Active confirmed Problem Chronic kidney disease stage 3A (196629895) Stage 3a chronic kidney disease (N18.31) Active confirmed Vital Signs Heart Rate 61 /min 03/28/2025 Blood pressure diastolic 60 mm Hg 03/28/2025 Height 74.50 in 03/28/2025 Blood pressure systolic 110 mm Hg 03/28/2025 Weight 186.2 lbs 03/28/2025 BMI 23.58 kg/m2 03/28/2025 Encounters Encounter Location Date Provider [facility] [address] [place] [address] [place] [id number] 09/26/2024 Marco [place] Pure hypercholestero lemia E78.00 ; Stage 3a chronic kidney disease N18.31 ; Vitamin D deficiency E55.9 ; Depressive disorder F32.9 and Ischemic cardiomyopathy I25.5 [facility] [address] [place] [address] [place] [id number] 03/28/2025 Marco [place] Paroxysmal atrial fibrillation I48.0 ; Pure hypercholesterolemia E78.00 ; Depressive disorder F32.9 ; Hypertensive heart disease with heart failure I11.0 ; Congestive heart failure, unspecified I50.9 ; Dilated cardiomyopathy I42.0 and BMI 23.0-23.9, adult Z68.23 [facility] [address] [place] [address] [place] [id number] 04/08/2025 Marco C[place]ick Assessments Encounter Date Diagnosis (ICD Code) Assessment Notes Treatment Notes Treatment Clinical Notes Section Notes 09/26/2024 Pure hypercholesterolemia (ICD-10 - E78.00) 09/26/2024 Stage 3a chronic kid jonas disease (ICD-10 - N18.31) 03/28/2025 Paroxysmal atrial fibrillation (ICD-10 - I48.0) 03/28/2025 Pure hypercholesterolemia (ICD-10 - E78.00) 03/28/2025 Depressive disorder (ICD-10 - F32.9) 09/26/2024 Vitamin D deficiency (ICD-10 - E55.9) 09/26/2024 Depressive disorder (ICD-10 - F32.9) 03/28/2025 Hypertensive heart disease with heart failure (ICD-10 - I11.0) 03/28/2025 Congestive heart failure, unspecified (ICD-10 - I50.9) 09/26/2024 Ischemic cardiomyopa thy (ICD-10 - I25.5) 03/28/2025 Dilated cardiomyopat hy (ICD-10 - I42.0) 03/28/2025 BMI 23.0-23.9, adult (ICD-10 - Z68.23) Plan Of Treatment Next Appt Details Provider Name:Marco Simental ry, 09/30/2025 09:15:00 AM, [address] [facility], [address], [place], [place], [id number], Insurance Providers Payer Name Payer Address Payer Phone Subscriber Number Group Number Insured Name Patient Relationship to Insured Coverage Start Date Coverage End Date MEDICARE PART B [address] [address] Juan Rsadiemichael [place] [id number] Lorenzo Hammer Self - patient is the insured [employer] [address] [address] [place] [address] [phone] [id number] Lorenzo Hammer Self - patient is the insured Medical (General) History Medical History History ICD Code Vitamin D Deficiency Left Bundle Branch Block Idiopathic Systolic Congesti ve Heart Failure: EF= 35% at Left Heart Cath November 2013; EF=45%, 2013 , EF 40%- 01/2017 A-Fib, Dr. 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 07/2018 Stroke- [place] [facility] 01/30-
[2025-07-17 16:10] LABS: Coronavirus 19, PCR Not Detected (NotDetected); Influenza A, PCR Not Detected (NotDetected); Influenza B, PCR Not Detected (NotDetected)
== END 2025-07-17 23:59 | disposition home or self-care (01) ==
LOC: RAD 12:37
PROVIDERS: PCP Family Medicine; Visit Provider Student in an Organized Health Care Education/Training Program
DX: J06.9 Acute upper respiratory infection, unspecified (principal); R91.8 Other nonspecific abnormal finding of lung field
CPT/HCPCS: 71046; 87636

== ENCOUNTER 2025-07-18 22:10 | Observation (INO) | payer MEDICARE, OTHER, SELFPAY ==
--- OUTSIDE RECORDS SUMMARY | 2024-02-01 10:45 | XMS_ITS ---
Author Organization [facility] Address [address] [facility] [address] [place] [id number] Care Team Providers Care Central Office Repairer Supervisor Name Role Phone Kerline Marco Primary Care [...] W/U Status Risk Notes Problem Chronic pain (14645235) Other chronic pain (G89.29) Active confirmed Problem Degenerative disc disease (69645188) DDD (degenerativ e disc disease), lumbar (M51.36) Active confirmed Vital Signs Blood pressure systolic 112 mm Hg 02/01/20 24 Blood pressure diastolic 70 mm Hg 024 Heart Rate 73 /min 02/01/2024 Height 74.50 in 02/01/2024 Weight 180.8 lbs 02/01/2024 BMI 22.90 kg/m2 02/01/2024 Encounters Encounter Location Date Provider Diagnosis Lia [address] [facility] [address] [place] [id number] 02/01/2024 Marco Churchill Low back pain, unspecified [...] repo rt test results, Reason: Provider Name:Marco lind, 07/18/2025 09:30:00 AM, [address] [facility], [address], [place], [id number], Provider Name:Marco lind, 09/30/2025 09:15:00 AM, [address] [facility], [address], [place], [id number], Progress Notes * Lorenzo HAMMER ADOB: 2 (74 yo M)Acc No.[id number]:02/01/2024 Progress Notes Patient: Lorenzo TRINH Provider: Carito Churchill M.D. :1950 A ge:73 Y S ex:Male Date:02/01/2024 Address:[address] [place] [address] [place], [id number] Subjective: * Chief Complaints: * 1 . Back pains. * HPI: L owtamara back: 73 year old male presents with [...] . * Surgical History: H ernia Repair- [place] 1974, Heart cath - [place] 11/2013, Carotid Artery - RT Blockage - [facility] 03/01/2018, Watchman Implant 2020. * Hospitalization/Major Diagno stic Procedure: S troke- [place] [facility] 01/30-, Hypertension- [facility] 07/2018. * Family History: F ather: [...] Marce Valencia 02/02/2024 8:53: 01 AM > [facility] 02/09/2024 at 06:30am; lvm for pt to call Marce Escalante 02/02/2024 10:16:16 AM > pt informed; order Lexi Mojica 02/13/2024 5:08:22 PM > See phone encounter 3.?DDD (degenerative disc disease), lumbar?Imaging: CT Scan : Spine, lumbosacral, without contrast (Performed Date - 02/09/2024)?Multilevel lumbar degenerative changes present with multilevel central jeff stenosis, most severe L2-3 and L3-4 and multilevel neural foraminal narrowing* AnnieMarce 02/02/2024 8:53: 01 AM > [facility] 02/09/2024 at 06:30am; lvm for pt to call Marce Escalante 02/02/2024 10:16:16 AM > pt informed; order Lexi Mojica 02/13/2024 5:08:22 PM > See phone encounter * Follow Up: v ia phone to report test results * Images: Billing Information: * Visit Code: 63189 Office Visit, Est Pt., Level 3. * Procedure Codes: * Electronic signature of Becca Churchill MD on 07/18/2025 at 09:45 AM EST Sign off status: Pending * Provider: Carito Churchill M.D. Date: 0 02/01/2024 Generated for Artur dalton/Trudi/Iglesia on: 1 09/18/2024 09:45 AM EST History and Physical Notes * HPI [...]
--- OUTSIDE RECORDS SUMMARY | 2024-09-26 04:30 | XMS_ITS ---
Author Organization [facility] Address [address] [facility] [address] [place] [phone] Care Team Providers Care Culinary Intern Name Role Phone Marco Churchill Primary Care Provider Allergies No Known Allergies Results Component Value Reference Range Notes P-Comprehensive Metabolic Pa nabeel (CMP) Reviewed date:09/28/2024 09:25:46 AM Interpretation:Normal Performing Lab: Notes/Report: Test performed by [facility] [facility] , [address], [place] [address] Cortez Hernandez MD, Commercial Loan Coordinator CLIA: [id number] Sodium 145 135-145 mmol/L Potassium 4.3 3.5-5.3 mmol/L Chloride 104 97-108 mmol/L CO2 29 22-32 mmol/L Glucose 92 65-99 mg/dL BUN 15 8-23 mg/dL Creatinine 1.30 0.70-1.30 mg/dL Calcium 9.3 8.6-10.4 mg/dL eGFR by Creatinine 58 >59 mL/min/1.73m2 Protein 6.6 6.0-8.3 g/dL Albumin 4.3 3.5-5.3 g/dL Alkaline Phosphatase 64 40-129 IU/L ALT (SGPT) 12 <5-55 IU/L AST (SGOT) 20 <5-46 IU/L Bilirubin, Total 0.5 <0.2-1.2 mg/dL A/G Ratio 1.9 1.1-2.5 P-Lipid Panel Reviewed date:09/28/2024 09:25:47 AM Interpretation:Normal Performing Lab: Notes/Report: Test performed by [facility] [address] [place] [address] Cortez Hernandez MD, Commercial Loan Coordinator CLIA: [id number] Cholesterol 153 <200 mg/dL Triglycerides 144 <150 mg/dL HDL Cholesterol 47 >39 mg/dL Cholesterol / HDL Ratio 3.26 0.00-4.99 Ratio Non-HDL Cholesterol 106 <130 mg/dL LDL Cholesterol (Calculation) 77 <130 mg/dL 100 to 129 mg/dL Near Optimal/ Above Optimal 130 to 159 mg/dL Borderline High 160 to 189 mg/dL High 190 mg/dL and above Very High * Categories as recommended by the 2004 ATPIII guidelines LDL Cholesterol Levels* Less than 100 mg/dL Optimal LDL/HDL Ratio 1.6 <3.3 Ratio LDL Cholesterol Patient History Test Date: 09/26/2024 LDL Results: 77 Units: mg/dL % Change: - P-Phosphorus Reviewed date:09/28/2024 09:25:47 AM Interpretation:Normal Performing Lab: Notes/Report: Test performed by [facility] [address] [place]ika Kumar, [place] [address] Cortez Hernandez MD, Commercial Loan Coordinator CLIA: [id number] Phosphorus 3.1 2.5-4.5 mg/dL P-TSH reflex to FT4 Reviewed date:09/28/2024 09:25:47 AM Interpretation:Normal Performing Lab: Notes/Report: Test performed by [facility] [address] [place] [address] , [address], [place] [address] Cortez Hernandez MD, Commercial Loan Coordinator CLIA: [id number] TSH reflex to FT4 2.57 0.43-5.25 mU/L P-Microalbumin/Creatinine, R andom Urine Sample Reviewed date:09/28/2024 09:25:47 AM Interpretation:Normal Performing Lab: Notes/Report: Test performed by [facility] [address] , [place] [address] Cortez Hernandez MD, Commercial Loan Coordinator CLIA: [id number] Albumin/Creatinine Ratio, Urine <2.2 0-30 ug/m g Microalbumin, Urine, Random <0.3 Creatinine, Urine 131.3 P-Vitamin D 25-Hydroxy Reviewed date:09/28/2024 09:25:47 AM Interpretation:Abnormal Performing Lab: Notes/Report: Test performed by [facility] [address] [place] [address] , [facility], [place] [address] Cortez Hernandez MD, Commercial Loan Coordinator CLIA: [id number] Vitamin D 25-Hydroxy 29.0 30.0-100.0 ng/mL Interpretation of Vitamin D 25 [place]: < 20 ng/mL - Deficiency 20 - 29 ng/mL - Insufficiency 30 - 100 ng/mL - Sufficiency > 100 ng/mL - Super-therapeutic- toxicity may occur above this level. Clinical correlation required. REASON FOR VISIT refills and check up Medications Medication SIG (Take, Route, Frequency, Duration) Notes Start Date End Date Status Rosuvastatin Calcium 20 MG TAKE 1 TABLET BY MOUTH ONCE DAILY AT BEDTIME; Duration: 90 days Active Loratadine 10 MG 1 tab(s) orally once a day; Duration: 30 day(s) 01/21/2020 Not-Taking Bisoprolol Fumarate 5 MG 1 tablet Orally once daily; Duration: 90 days Active Vitamin D3 50 MCG (1999 UT) 2 cap(s) orally once a day 08/23/2019 Not-Taking DULoxetine HCl 30 MG 1 capsule Orally on ce daily; Duration: 90 days Active Sildenafil Citrate 20 MG 1 to 5 tab(s) o rally once daily as needed 10/20/2018 Not-Taking Aspirin 81 MG 1 tablet Orally Once a day; Duration: 30 day(s) Active Vital Signs Blood pressure systolic 102 mm Hg 09/26/19 25 Blood pressure diastolic 60 mm Hg 025 Heart Rate 49 /min 09/26/2024 Height 74.50 in 09/26/2024 Weight 193.8 lbs 09/26/2024 BMI 24.55 kg/m2 09/26/2024 Encounters Encounter Location Date Provider Diagnosis [facility] [address] [facility] [address] [place] [id number] 09/26/2024 Marco Churchill Pure hypercholestero lemia E78.00 ; Stage 3a chronic kidney disease N18.31 ; Vitamin D deficiency E55.9 ; Depressive disorder F32.9 and Ischemic cardiomyopathy I25.5 Assessments Encounter Date Diagnosis (ICD Code) Assessment Notes Treatment Notes Treatment Clinical Notes Section Notes 09/26/2024 Pure hypercholesterolemia (ICD-10 - E78.00) 09/26/2024 Stage 3a chronic kid jonas disease (ICD-10 - N18.31) 09/26/2024 Vitamin D deficiency (ICD-10 - E55.9) 09/26/2024 Depressive disorder (ICD-10 - F32.9) 09/26/2024 Ischemic cardiomyopa thy (ICD-10 - I25.5) Plan Of Treatment Medication Medication Name Sig Start Date Stop Date Notes Rosuvastatin Calcium 20 MG TAKE 1 TABLET BY MOUTH ONCE DAILY AT BEDTIME; Duration: 90 days Bisoprolol Fumarate 5 MG 1 tablet Orally once daily; Duration: 90 days DULoxetine HCl 30 MG 1 capsule Orally on ce daily; Duration: 90 days Next Appt Details Follow Up: 6 Months, Reason: Provider Name:Marco lind, 07/18/2025 09:30:00 AM, [address] [facility], [address], [place], [phone], Provider Name:Marco lind, 09/30/2025 09:15:00 AM, [address] [facility], [address], [place], [place], [phone], Progress Notes * Lorenzo HAMMER ADOB: 2 (74 yo M)Acc No.[id number]:09/26/2024 Progress Notes Patient: Lorenzo TRINH Provider: Carito Churchill M.D. :1950 A ge:74 Y S ex:Male Date:09/26/2024 Address:[address] [place] [address] CODI DREW, [id number] Subjective: * Chief Complaints: * 1 . Refills and check up. * HPI: C ardiology: 74 year old male presents with c/o Hyperlipidemia P t is not fasting today. c/o Hypotension P t here for f/u. Pt states he is doing well and does not have any concerns. * ROS: D ERMATOLOGY: no R wenceslao. [...] . * Surgical History: H ernia Repair- [place] 1974, Heart cath - [place] 11/2013, Carotid Artery - RT Blockage - [facility] 03/01/2018, Watchman Implant 2020. * Hospitalization/Major Diagno stic Procedure: S troke- [place] [facility] 01/30-, Hypertension- [facility] 07/2018. * Family History: F ather: [...] Sexually active: yes. * Medications: T aking Aspirin 81 MG Tablet Delayed Release 1 tablet Orally Once a day , Taking DULoxetine HCl 30 MG Capsule Delayed Release Particles Take 1 capsule by mouth once daily , Taking Rosuvastatin Calcium 20 MG Tablet TAKE 1 TABLET BY MOUTH ONCE DAILY AT BEDTIME , Taking Bisoprolol Fumarate 5 MG Tablet Take 1 tablet by mouth once daily , Not-Taking Sildenafil Citrate 20 MG Tablet 1 to 5 tab(s) orally once daily as needed , Not-Taking Vitamin D3 50 MCG (2000 UT) Capsule 2 cap(s) orally once a day , Not-Taking Loratadine 10 MG Tablet 1 tab(s) orally once a day , Discontinued Trelegy Ellipta 100-62.5-25 MCG/ACT Aerosol Powder Breath Activated 1 puff Inhalation Once a day , Discontinued Albuterol Sulfate HFA 108 (90 Base) MCG/ACT Aerosol Solution 1 puff Inhalation every 4 hrs, prn , Discontinued Antifungal Clotrimazole 1 % Cream 1 application Externally Twice a day , Medication List reviewed and reconciled with the patient * Allergies: N .K.D.A. Objective: * Vitals: W t:193.8, Temp:98.0, BP:102/60, HR:49, Nurse:magan, Ht: 74.50, BMI:24.55. * Examination: C ardiology: General Appearance: p leasant, NAD. H EENT: u nremarkable. H eart sounds: R RR, normal S1, S2. L ungs: c lear, no rales or wheezes.?Extremities: n o leg edema. P eripheral pulses: 2 plus bilateral. ? Assessment: * Assessment: 1. P ure hypercholesterolemia - E78.00 (Primary) 2 . S tage 3a chronic kidney disease - N18.31 3 . V itamin D deficiency - E55.9 4 . D epressive disorder - F32.9 5 . I schemic cardiomyopathy - I25.5 Plan: * Treatment: Value Reference Range A /G Ratio 1.9 1.1-2.5 - * A lbumin 4.3 3.5-5.3 - g/dL * A lkaline Phosphatase 64 40-129 - IU/L * A LT (SGPT) 12 <5-55 - IU/L * A ST (SGOT) 20 <5-46 - IU/L * B ilirubin, Total 0.5 <0.2-1.2 - mg/dL * B UN 15 8-23 - mg/dL * C alcium 9.3 8.6-10.4 - mg/dL * C hloride 104 97-108 - mmol/L * C O2 29 22-32 - mmol/L * C reatinine 1.30 0.70-1.30 - mg/dL * G lucose 92 65-99 - mg/dL * P otassium 4.3 3.5-5.3 - mmol/L * S odium 145 135-145 - mmol/L * P rotein 6.6 6.0-8.3 - g/dL * e GFR by Creatinine 58 L >59 - mL/min/1.73m2 * Marco Churchill 09/27/2024 8 :41:43 AM > Sent to to inform pt. Pratima Soler 09/28/2024 9:25:23 AM > Pt informed ?LAB: P-Lipid Panel (Collection Date & Time - 09/26/2024 09:41 AM)?Normal* Value Reference Range C holesterol / HDL Ratio 3.26 0.00-4.99 - Ratio * C holesterol 153 <200 - mg/dL * H DL Cholesterol 47 >39 - mg/dL * L DL Cholesterol (Calculation) 77 <130 - mg/d L * L DL/HDL Ratio 1.6 <3.3 - Ratio * N on-HDL Cholesterol 106 <130 - mg/dL * T riglycerides 144 <150 - mg/dL * Marco Churchill 09/27/2024 8 :41:43 AM > Sent to to inform pt. Pratima Soler 09/28/2024 9:25:23 AM > Pt informed ?LAB: P-TSH reflex to FT4 (Collection Date & Time - 09/26/2024 09:41 AM)? Normal* Value Reference Range T SH reflex to FT4 2.57 0.43-5.25 - mU/L * Marco Churchill Chapis 09/27/2024 8 :41:43 AM > Sent to to inform pt. Pratima Soler 09/28/2024 9:25:23 AM > Pt informed 2.?Stage 3a chronic kidney disease?LAB: P-Comprehensive Metabolic Panel (CMP) (Collection Date & Time - 09/26/2024 09:41 AM)?Normal* Value Reference Range A /G Ratio 1.9 1.1-2.5 - * A lbumin 4.3 3.5-5.3 - g/dL * A lkaline Phosphatase 64 40-129 - IU/L * A LT (SGPT) 12 <5-55 - IU/L * A ST (SGOT) 20 <5-46 - IU/L * B ilirubin, Total 0.5 <0.2-1.2 - mg/dL * B UN 15 8-23 - mg/dL * C alcium 9.3 8.6-10.4 - mg/dL * C hloride 104 97-108 - mmol/L * C O2 29 22-32 - mmol/L * C reatinine 1.30 0.70-1.30 - mg/dL * G lucose 92 65-99 - mg/dL * P otassium 4.3 3.5-5.3 - mmol/L * S odium 145 135-145 - mmol/L * P rotein 6.6 6.0-8.3 - g/dL * e GFR by Creatinine 58 L >59 - mL/min/1.73m2 * Marco Churchill Chapis 09/27/2024 8 :41:43 AM > Sent to to inform pt. Kiersten Solerira 09/28/2024 9:25:23 AM > Pt informed ?LAB: P-Phosphorus (Collection Date & Time - 09/26/2024 09:41 AM)?Normal* Value Reference Range P hosphorus 3.1 2.5-4.5 - mg/dL * Marco Churchill Chapis 09/27/2024 8 :41:43 AM > Sent to to inform pt. Kiersten Solerira 09/28/2024 9:25:23 AM > Pt informed ?LAB: P-Microalbumin/Creatinine, Random Urine Sample (Collection Date & Time - 09/26/2024 09:41 AM)?Normal* Value Reference Range A lbumin/Creatinine Ratio, Urine <2.2 0-30 - ug /mg * C reatinine, Urine 131.3 - mg/dL * M icroalbumin, Urine, Random <0.3 - mg/dL * KerlineMarco Nation 09/27/2024 8 :41:43 AM > Sent to to inform pt. Pratima Soler 09/28/2024 9:25:23 AM > Pt informed 3.?Vitamin D deficiency?LAB: P-Vitamin D 25-Hydroxy (Collection Date & Time - 09/26/2024 09:41 AM)? Abnormal* Value Reference Range V itamin D 25-Hydroxy 29.0 L 30.0-100.0 - ng/mL * KerlineMarco Nation 09/27/2024 8 :41:43 AM > Pt needs to increase his daily Vit D intake by 50 mcg. Sent to to inform pt. Pratima Soler 09/28/2024 9:25:23 AM > Pt informed 4.?Depressive disorder? Refill DULoxetine HCl Capsule Delayed Release Particles, 30 MG, 1 capsule, Orally, once daily, 90 days, 90, Refills 1.??5.?Ischemic cardiomyopathy? Refill Bisoprolol Fumarate Tablet, 5 MG, 1 tablet, Orally, once daily, 90 days, 90, Refills 1.?? * Procedure Codes: G 2211 Complex e/m visit add on, 3074F SYST BP LT 130 MM HG, 3078F DIAST BP < 80 MM HG * Follow Up: 6 Months * Images: Billing Information: * Visit Code: 51114 Office Visit, Est Pt., Level 4. * Procedure Codes: G2211 Complex e/m visit add on. 3074F SYST BP LT 130 MM HG. 3078F DIAST BP < 80 MM HG. * Electronic signature of Becca Churchill MD on 07/18/2025 at 09:45 AM EST Sign off status: Pending * Provider: Carito Churchill M.D. Date: 0 09/26/2024 Generated for Artur dalton/Trudi/eTransmitting on: 1 09/18/2024 09:45 AM EST History and Physical Notes * HPI (History of Present Illness) Category Sub-Category Detail Notes Category Not es Cardiology Hyperlipidemia Pt is not fasting today Hypotension Pt here for f/u. Pt states he is doing well and does not have any concerns Examination Category Sub-Category Detail Notes Category Not es Cardiology Lungs: clear, no rales or wheezes HEENT: unremarkable Heart sounds: RRR, normal S1, S2 Extremities: no leg edema Peripheral pulses: 2 plus bilateral General Appearance: pleasant, NAD
--- OUTSIDE RECORDS SUMMARY | 2025-03-28 04:15 | XMS_ITS ---
Author Organization [facility] Address [address] [facility] [address] [place] [id number] Care Team Providers Care Vice President Biostatistics Name Role Phone Marco Churchill Primary Care Provider Allergies No Known Allergies REASON FOR VISIT 6 month ckup Medications Medication SIG (Take, Route, Frequency, Duration) Notes Start Date End Date Status Rosuvastatin Calcium 20 MG TAKE 1 TABLET BY MOUTH ONCE DAILY AT BEDTIME Active Bisoprolol Fumarate 5 MG Take 1 tablet b y mouth once daily Active Aspirin 81 MG 1 tablet Orally Once a day Active Bisoprolol Fumarate 5 MG 1 tablet Orally once daily; Duration: 90 days Active DULoxetine HCl 30 MG 1 capsule Orally on ce daily; Duration: 90 days Active Problems Problem Type SNOMED Code ICD Code Onset Dates Problem Status W/U Status Risk Notes Problem Hypertensive heart failure (58812416) Hypertensive heart disease with heart failure (I11.0) Active confirmed Problem Congestive heart failure (26532043) Congestive heart failure, unspecified (I50.9) Active confirmed Problem Dilated cardiomyopathy (318878784) Dilated cardiomyopathy (I42.0) Active confirmed Vital Signs Blood pressure systolic 110 mm Hg 03/28/20 25 Blood pressure diastolic 60 mm Hg 025 Heart Rate 61 /min 03/28/2025 Height 74.50 in 03/28/2025 Weight 186.2 lbs 03/28/2025 BMI 23.58 kg/m2 03/28/2025 Encounters Encounter Location Date Provider Diagnosis [facility] [address] [place] [phone] 03/28/2025 Marco Churchill Paroxysmal atrial fibrillation I48.0 ; Pure hypercholesterolemia E78.00 ; Depressive disorder F32.9 ; Hypertensive heart disease with heart failure I11.0 ; Congestive heart failure, unspecified I50.9 ; Dilated cardiomyopathy I42.0 and BMI 23.0-23.9, adult Z68.23 Assessments Encounter Date Diagnosis (ICD Code) Assessment Notes Treatment Notes Treatment Clinical Notes Section Notes 03/28/2025 Paroxysmal atrial fibrillation (ICD-10 - I48.0) 03/28/2025 Pure hypercholesterolemia (ICD-10 - E78.00) 03/28/2025 Depressive disorder (ICD-10 - F32.9) 03/28/2025 Hypertensive heart disease with heart failure (ICD-10 - I11.0) 03/28/2025 Congestive heart failure, unspecified (ICD-10 - I50.9) 03/28/2025 Dilated cardiomyopat hy (ICD-10 - I42.0) 03/28/2025 BMI 23.0-23.9, adult (ICD-10 - Z68.23) Plan Of Treatment Medication Medication Name Sig Start Date Stop Date Notes Rosuvastatin Calcium 20 MG TAKE 1 TABLET BY MOUTH ONCE DAILY AT BEDTIME Bisoprolol Fumarate 5 MG Take 1 tablet b y mouth once daily Aspirin 81 MG 1 tablet Orally Once a day Next Appt Details Follow Up: 6 Months fasting, Reason: Provider Name:Marco lind, 07/18/2025 09:30:00 AM, [address] [facility] 36 [facility] [address], [place], [phone], Provider Name:Marco lind, 09/30/2025 09:15:00 AM, [address] [facility] 36 [facility] [address], [place], [phone], Progress Notes * Lorenzo HAMMER ADOB: (74 yo M)Acc No.[id number]:03/28/2025 Progress Notes Patient: Lorenzo TRINH Provider: Carito Churchill M.D. :1950 A ge:74 Y S ex:Male Date:03/28/2025 Address:[address] [place] [address] CODI DREW, [id number] Subjective: * Chief Complaints: * 1 . 6 month ckup. * HPI: C ardiology: 74 year old male presents with c/o Blood Pressure Elevated P t here for 6 mo check up on hypertension. Pt states he is doing well and does not have any concerns . c/o Hyperlipidemia P t is not fasting today. * ROS: D ERMATOLOGY: no R wenceslao. [...] Cardiomyopathy, 06/2017, Pacemaker, [place] - Brain Bleed 01/29/2018, Declines all cancer screenings March 2025. * Surgical History: H ernia Repair- [place] 1974, Heart cath - [place] 11/2013, Carotid Artery - RT Blockage - [facility] 03/01/2018, Watchman Implant 2020. * Hospitalization/Major Diagno stic Procedure: S troke- [place] [facility] 01/30-, Hypertension- [facility] 07/2018. * Family History: F ather: [...] tablet Orally Once a day , Taking Rosuvastatin Calcium 20 MG Tablet TAKE 1 TABLET BY MOUTH ONCE DAILY AT BEDTIME , Taking DULoxetine HCl 30 MG Capsule Delayed Release Particles 1 capsule Orally once daily , Taking Bisoprolol Fumarate 5 MG Tablet 1 tablet Orally once daily , Discontinued Sildenafil Citrate 20 MG Tablet 1 to 5 tab(s) orally once daily as needed , Discontinued Vitamin D3 50 MCG (1999) Capsule 2 cap(s) orally once a day , Discontinued Loratadine 10 MG Tablet 1 tab(s) orally once a day , Medication List reviewed and reconciled with the patient * Allergies: N .K.D.A. Objective: * Vitals: W t: 186.2, Temp: 97.8, BP: 110/60, HR: 61, Nurse: magan, Ht: 74.50, BMI:23.58. * Examination: C ardiology: General Appearance: p leasant, NAD. H EENT: u nremarkable. H eart sounds: R RR, normal S1, S2. L ungs: c lear, no rales or wheezes.?Extremities: n o leg edema. P eripheral pulses: 2 plus bilateral. ? Assessment: * Assessment: 1. P aroxysmal atrial fibrillation - I48.0 (Primary) 2 . P ure hypercholesterolemia - E78.00 3 . D epressive disorder - F32.9 4 . H ypertensive heart disease with heart failure - I11.0 5 . C ongestive heart failure, unspecified - I50.9 6 . D ilated cardiomyopathy - I42.0 7 .?BMI 23.0-23.9, adult - Z68.23 Plan: * Treatment: 2. P ure hypercholesterolemia Continue Rosuvastatin Calcium Tablet, 20 MG, TAKE 1 TABLET BY MOUTH ONCE DAILY AT BEDTIME. ? * Procedure Codes: G 2211 Complex e/m visit add on, G8420 BMI<30 AND >=22 CALC & DOCU, G8950 PREHTN/HTN BP DOC INDCD F/U DOC, G8752 MOST RECENT SYSTOLIC BP < 140MM HG, G8754 MOST RECENT DIASTOLIC BP < 90MM HG * Follow Up: 6 Months fasting * Images: Billing Information: * Visit Code: 93762 Office Visit, Est Pt., Level 3. * Procedure Codes: G2211 Complex e/m visit add on. G8420 BMI<30 AND >=22 CALC & DOCU. G8950 PREHTN/HTN BP DOC INDCD F/U DOC. G8752 MOST RECENT SYSTOLIC BP < 140MM HG. G8754 MOST RECENT DIASTOLIC BP < 90MM HG. * Electronic signature of Becca Churchill MD on 07/18/2025 at 09:45 AM EST Sign off status: Pending * Provider: Carito Churchill M.D. Date: 0 03/28/2025 Generated for Artur dalton/Trudi/Timmyitting on: 1 09/18/2024 09:45 AM EST History and Physical Notes * HPI (History of Present Illness) Category Sub-Category Detail Notes Category Not es Cardiology Blood Pressure Elevated Pt here for 6 mo check up on hypertension. Pt states he is doing well and does not have any concerns Hyperlipidemia Pt is not fasting to day Examination Category Sub-Category Detail Notes Category Not es Cardiology Lungs: clear, no rales or wheezes HEENT: unremarkable Heart sounds: RRR, normal S1, S2 Extremities: no leg edema Peripheral pulses: 2 plus bilateral General Appearance: pleasant, NAD
--- OUTSIDE RECORDS SUMMARY | 2025-05-24 02:00 | XMS_ITS | Encounter Summary ---
Author Organization [email or web address] ([place], [place], [place], [place], [place]) Address [address] [place] [address] Care Team Providers Care Lock Tender Chief Operator Name Role Phone Marco Churchill MD Primary Care Provider + [phone] Reason for Visit * Reason Comments Pacemaker /ICD Home Monitoring Encounter Details Date Type Department Care Team (Late st Contact Info) Description 05/24/2025 3:00 AM EDT Clinical Support [facility] Electrophysiology [address] [place], [place] [phone] Rhona Newton MD [address] [place] [address] [address] [place] [address] Encounter for adjustment or management of cardiac [...] Date Chano rded Speak language other than Pashto at home Not on file 08/26/2023 Want [...] Description 10/21/2025 8:30 AM EDT Office Visit [facility] Electrophysiology [address] [place] [address] [place] [address] [place] [address] [address] [place] [address] documented as of this encounter Visit Diagnoses Diagnosis Encounter for adjustment or management of cardiac device- Primary NICM (nonischemic cardiomyopathy) (HCC) Chronic systolic congestive heart failure (HCC) Persistent atrial fibrillation (HCC) Atrial fibrillation AICD (automatic cardioverter/defibrillator) present Automatic implantable cardiac defibrillator in situ documented in this encounter Care Teams Lock Tender Chief Operator Relationship Specialty Start Date End Date Marco Churchill MD [address] [facility] [address] [place] [address] PCP - General Family Medicine 06/25/22 documented as of this encounter
--- NOTE | 2025-07-18 22:17 | ECG_ITS ---
APPROVED REPORT Exam: Resting ECG HR:87 bpm ECG Measurements Heart Rate 87 AXES LA 146 P 59 QRSd 114 QRS -77 QT 367 T 72 QTc 412 Conclusion ELECTRONIC VENTRICULAR PACEMAKER ABNORMAL RHYTHM ECG UNCONFIRMED REPORT Electronically signed by : TORO VALLEJO, 07/19/2025 02:26:22
[2025-07-18 22:19] VITALS: BP 159/97; PULSE 92; RESP 18; TEMP 37; O2SAT 94; BMI 15.8
--- OUTSIDE RECORDS SUMMARY | 2025-07-18 22:21 | XMS_ITS | Clinical Summary ---
[facility] Address [address] [place] [address] Care Team Providers Care Station Master Name Role Phone Marco Churchill MD Primary Care Provider [phone] Social History Tobacco Use Types Packs/Day Years [...] season) 2025 Medical Devices Implanted Type Area Charging Manipulator Device Identifier Shelf Expiration Date Model / Serial / Lot Imageready Pacemaker- 017 Implanted:2016 (Quantity not on file) [employer] Description:imageready pacem molina Model [id number] DRUG REP CARDIOLOGY PA Insurance MEDICARE A & B [employer] [place] [id number] Care Teams Station Master Relationship Specialty Start Date End Date Marco Churchill MD [address] [facility] [address] [facility] [address] [place] [address] PCP - General Family Medicine 02/08/18
--- OUTSIDE RECORDS SUMMARY | 2025-07-18 22:21 | XMS_ITS | Patient Health Record ---
Author Organization [facility] Address [address] [place] [id number] Care Team Providers Care Auction Clerk Name Role Phone Marco Churchill Primary Care Provider Allergies No Known Allergies Results Component Value Reference Range Notes P-Comprehensive Metabolic Pa nabeel (CMP) Reviewed date:09/28/2024 09:25:46 AM Interpretation:Normal Performing Lab: Notes/Report: Test performed by [facility], [address] , [address], [place] [address] Cortez Hernandez MD, Regional Forester CLIA: [id number] Sodium 145 135-145 mmol/L Potassium 4.3 3.5-5.3 [...] Interpretation:Normal Performing Lab: Notes/Report: Test performed by [facility] [place] [address] Cortez Hernandez MD, Regional Forester CLIA: [id number] Cholesterol 153 <200 mg/dL Triglycerides 144 <150 [...] Interpretation:Normal Performing Lab: Notes/Report: Test performed by [facility] [place] [address], [place] [address] Cortez Hernandez MD, Regional Forester CLIA: [id number] Phosphorus 3.1 2.5-4.5 mg/dL P-TSH reflex to FT4 Reviewed date:09/28/2024 09:25:47 AM Interpretation:Normal Performing Lab: Notes/Report: Test performed by [facility], [address] , [address], [place] [address] Cortez Hernandez MD, Regional Forester CLIA: [id number] TSH reflex to FT4 2.57 0.43-5.25 mU/L P-Microalbumin/Creatinine, R andom Urine Sample Reviewed date:09/28/2024 09:25:47 AM Interpretation:Normal Performing Lab: Notes/Report: [facility] performed [facility] , [facility] [address], [place] [address] Cortez Hernandez MD, Regional Forester CLIA: [id number] Albumin/Creatinine Ratio, Urine <2.2 0-30 ug/m g Microalbumin, Urine, Random <0.3 Creatinine, Urine 131.3 P-Vitamin D 25-Hydroxy Reviewed date:09/28/2024 09:25:47 AM Interpretation:Abnormal Performing Lab: Notes/Report: Test performed by [facility] [address] , [address], [place] [address] Cortez Hernandez MD, Regional Forester CLIA: [id number] Vitamin D 25-Hydroxy 29.0 30.0-100.0 ng/mL Interpretation [...] BY MOUTH AT BEDTIME; Duration: 90 Active Aspirin 81 MG 1 tablet Orally Once a day Active predniSONE 10 MG 1 tablet with food o r milk Orally Once a day Active Benzonatate 100 MG 1 capsule as needed Orally Three times a day Active Bisoprolol Fumarate 5 MG Take 1 tablet b y mouth once daily; Duration: 90 Active DULoxetine HCl 30 MG Take 1 capsule by m outh once daily; Duration: 90 Active Immunizations Vaccine Route Administration Date Status Comme nts COVID 19 Pfizer Unknown 04/29/2021 Administered DT, 7 YEARS OR OLDER Unknown 10/17/1996 Administered Fluzone High Dose (65yr and older) IM Intramuscular 05/24/2020 Administered Fluzone High Dose (65yr and older) Unknown 06/09/2023 Administered Fluzone PF Quad (6-35 months) Unknown 05/25/2018 Administered Fluzone PF Quad (6-35 months) Unknown 06/11/2022 Administered xFluzone High Dose-private (65yr&older) Unknown 07/31/2021 Administered Problems Problem Type SNOMED Code ICD Code Onset Dates Problem Status W/U Status Risk Notes Problem Vitamin D deficiency (71779960) Vitamin D deficiency (E55.9) Active confirmed Problem Seasonal allergy (871878771) Seasonal allergies (J30.2) Active confirmed Problem Paroxysmal atrial fibrillation (091172577) Paroxysmal atrial fibrillation (I48.0) Active confirmed Problem Hypovolemia (998420990) Hypovolemia (E86.1) Active confirmed Problem Hypertensive heart failure (54091566) Hypertensive heart disease with heart failure (I11.0) Active confirmed Problem Ischemic cardiomyopathy (611186432) Ischemic cardiomyopathy (I25.5) Active confirmed Problem Dilated cardiomyopathy (580703205) Dilated cardiomyopathy (I42.0) Active confirmed Problem Hypotension (77472110) Other hypotension (I95.89) Active confirmed Problem Congestive heart failure (94724799) Congestive heart failure, unspecified (I50.9) Active confirmed Problem Depressive disorder (03354549) Depressive disorder (F32.9) Active confirmed Problem Chronic pain (95421752) Other chronic pain (G89.29) Active confirmed Problem Constipation (75598250) Constipation, unspecified constipation type (K59.00) Active confirmed Problem Erectile dysfunction (disorder) (354446819) Erectile dysfunction, unspecified erectile dysfunction type (N52.9) Active confirmed Problem History of nutritional deficiency (11322284151055) History of vitamin D deficiency (Z86.39) Active confirmed Problem Long-term current us e of drug therapy (595849441) Long-term use of high-risk medication (Z79.899) Active confirmed Problem Degenerative disc disease (42900614) DDD (degenerative disc disease), lumbar (M51.36) Active confirmed Problem Chronic systolic heart failure (035104650) Chronic systolic heart failure (I50.22) Active confirmed Problem Pure hypercholesterolemia (990638965) Pure hypercholesterolemia (E78.00) Active confirmed Problem Skin sensation disturbance (22422996) Arm paresthesia, left (R20.2) Active confirmed Problem Allergic rhinitis (13868488) Allergic rhinitis, unspecified seasonality, unspecified trigger (J30.9) Active confirmed Problem Chronic kidney disease stage 3A (492043340) Stage 3a chronic kidney disease (N18.31) Active confirmed Vital Signs Heart Rate 84 /min 07/18/2025 Blood pressure diastolic 60 mm Hg 07/18/2025 Height 74.50 in 07/18/2025 Blood pressure systolic 114 mm Hg 07/18/2025 Weight 186.8 lbs 07/18/2025 BMI 23.66 kg/m2 07/18/2025 Encounters Encounter Location Date Provider Diagnosis [facility] [facility] [facility] [address] [place], [place] [id number] 09/26/2024 Marco [place] Pure hypercholestero lemia E78.00 ; Stage 3a chronic kidney disease N18.31 ; Vitamin D deficiency E55.9 ; Depressive disorder F32.9 and Ischemic cardiomyopathy I25.5 [facility] [address] [place] [facility] [address] [place], [place] [id number] 03/28/2025 Marco [place] Paroxysmal atrial fibrillation I48.0 ; Pure hypercholesterolemia E78.00 ; Depressive disorder F32.9 ; Hypertensive heart disease with heart failure I11.0 ; Congestive heart failure, unspecified I50.9 ; Dilated cardiomyopathy I42.0 and BMI 23.0-23.9, adult Z68.23 [facility] [address] [facility] [address] [place], [place] [id number] 07/18/2025 Marco [place] [facility] [address] [place] [facility] [address] [place], [place] [id number] 04/08/2025 Marco [place] Assessments Encounter Date Diagnosis (ICD Code) Assessment [...] Of Treatment Next Appt Details Provider Name:Marco lind, 07/18/2025 09:30:00 AM, [address] [place] [address] [address] [facility], [address], [place], [place], [id number], Provider Name:Marco lnid, 09/30/2025 09:15:00 AM, [facility] [address] [facility], [address], [place], [place], [id number], Insurance Providers Payer Name Payer Address Payer Phone Subscriber Number Group Number Insured Name Patient Relationship to Insured Coverage Start Date Coverage End Date MEDICARE PART B [address] [address] Juan Rsadiemichael [place] [id number] Lorenzo Hammer Self - patient is the insured [employer] [address] [address] [place] [address] [id number] Lorenzo Hammer Self - patient is the [...] 03 Surgical History Surgery Date(Month/Year) Hernia Repair- [place] 1974 Heart cath - [place] 11/2013 Carotid Artery - RT Blockage - [facility] Watchman Implant 2020 Hospitalization History Reason Date(Month/Year) Hypertension- [facility] 07/2018 Stroke- [place] [facility] 01/30-
--- OUTSIDE RECORDS SUMMARY | 2025-07-18 22:21 | XMS_ITS | Data Portability ---
Author Organization ANYA SIDRA Nino NISULA CLOSED Address [address] [facility] [address] [place] [address] Care Team Providers Care Maintenance Planner Name Role Phone JOSR DANG Neurologist Assessment Encounter Date Assessment Date Assessment LastModified by Organization Details LastModified Time 02/17/2018 02/17/2018 Stroke. He seems to have had small right MCA distribution cortical stroke with mild hemorrhagic conversion. The stroke itself presumably is related to the carotid occlusion suggested on MRA. Discussed the above with the patient. I would like to review the MRI images, and those were requested. I will arrange for CT angiogram of the neck and head to better define the extent of the carotid occlusion and to rule out high-grade stenosis. Will arrange for echocardiogram. He should resume aspirin today and almost certainly should resume warfarin but I will include head CT with the CTA to be sure that the small hemorrhage has resolved. Discussed warning symptoms of stroke and need for urgent evaluation if those occur. f/u after the above. [email or web address] Not available 03/01/2018 12:50:58 03/08/2018 03/08/2018 1. Stroke. He blake d small right MCA distribution cortical stroke with mild hemorrhagic conversion. 2. Right carotid occlusion. This is the most likely cause of the stroke. He has atrial fibrillation as well. Discussed the above with the patient and his in some depth. He is generally doing better, and initial deficits were mild. There was no residual hemorrhage on CT, and I think he can resume warfarin for atrial fibrillation in the next few weeks, of course to keep eye on INR. f/u with his maintenance coordinator as scheduled and with me in a few mos [email or web address] Not available 03/23/2018 16:35:49 09/06/2018 09/06/2018 1. Stroke. He had small right MCA distribution cortical ischemic stroke with mild hemorrhagic conversion, last summer. 2. Right carotid occlusion. This is the most likely cause of the stroke, but he has known atrial fibrillation as well Discussed the above. Neurologically, he has been stable. I think the benefit of resuming anticoagulation outweighs the risk; we discussed all this. This was not a primary cerebral hemorrhage but was bland ischemic infarct with secondary mild hemorrhagic conversion. He is to f/u with his maintenance coordinator, and I will send this note to him. [email or web address] Not available 09/06/2018 17:13:19 Plan of Treatment Reminders Order Date Submit Date Provider Last Modified By Organization Details Last Modified Time Details Appointments None recorded. Lab None recorded. Referral None recorded. Procedures None recorded. Surgeries None recorded. Imaging CT, angiogram, head, w/ contrast 2017 018 [email or web address] [facility] Central Scheduling, [address], [place], [address], 8 16:07:19 CT, angiogram, neck, w/ contrast [email or web address] Joseph Mcfarland Scheduling, [address], [place], [address], 8 16:07:20 , echocardiog william [email or web address] Scheduling, [address], [place], [address], 8 14:39:35 CT, head, w/o contrast - STAT READ ON CT HEAD [email or web address] Scheduling, [address], [place], [address], 8 09:53:54 Medication Orders None recorded. Patient TargetsNo targets recorded. Patient InstructionsNo instructions recorded. Reason for Referral None Reported. Results Created Date Observation Date Name Description Value Unit Range Abnormal Flag Note LastModifiedBy Organization Detail LastModifiedTime 02/09/20 18 02/08/2018 imagi ng inter preta tion No observ ation record ed. [facility] [address], [place], [address], 02/14/2018 15:47:01 02/09/20 18 02/08/2018 MRI, brain , w/wo contr ast No observ ation record ed. [facility] [address], [place], [address], 02/14/2018 15:46:18 02/09/20 18 02/08/2018 MRI, brain , w/wo contr ast No observ ation record ed. valery Not Available 2017 15:46:03 02/21/20 18 02/20/2018 CT, head, w/o contr ast No observ ation record ed. [email or web address] [facility] [address] , [place], [address], 02/22/2018 18:46:58 03/01/20 18 03/01/2018 CT, angio gram, neck, w/ contr ast No observ ation record ed. [facility] Scheduling [address] [facility] , [place], [address], 03/01/2018 14:57:25 Result Notes None recorded. Problems No Known Problems Procedures Surgical History Date Name Laterality Status Provider Name and Address Organization Details Recorded Time Pacemaker monitr audible/vis completed Reyna Chaudhry [facility] 02/17/2018 15:54:33 Imaging Results None recorded. Procedure Notes None recorded. Medical Equipment None Reported. Allergies No known drug allergies Medications Name Sig Start Date Stop Date Status Note LastModified by Organization Details LastModified Time amiodarone 200 mg tablet active Not Available Not Availabl e Not Available hydrocodone 5 mg-acetaminop hen 325 mg tablet 02/17 completed Not Available Not Available Not Available bisoprolol fumarate 5 mg tablet active Not Available Not Available Not Available amoxicillin 875 mg tablet active Not Available Not Availabl e Not Available warfarin 2 mg tablet 09/06 completed Not Available Not Available Not Available warfarin 5 mg tablet active Not Available Not Available Not Available lisinopril 5 mg tablet 09/06 completed Not Available Not Available Not Available cefdinir 300 mg capsule 09/06 completed Not Available Not Available Not Available Asprin Ec Low Dose 81 mg tablet,delaye d release Take 1 tablet every day by oral route. active Not Available Not Available No t Available rosuvastatin 20 mg tablet active Not Available Not Available Not Available duloxetine 30 mg capsule,delay ed release active Not Available Not Available N ot Available diclofenac 1 % topical gel active Not Available Not Availabl e Not Available Eliquis 2.5 mg tablet active Not Available Not Available No t Available Vitals Date Recorded Body height Body mass index (BMI) Body weight Heart rate Systolic And Diastolic Provider Name and Address Organization Details Last Updated DateTime 09/06/2018 190.5 cm 24.1 kg/m2 80749.33 g 60 /min 108/78 mm[Hg] Marium Pavon [facility] 9 13:26:37 Date Recorded Body height Body mass index (BMI) Body weight Heart rate Systolic And Diastolic Provider Name and Address Organization Details Last Updated DateTime 02/17/2018 190.5 cm 22.7 kg/m2 05556.81 g 72 /min 124/82 mm[Hg] Reyna Chaudhry [facility] 02/17/2018 15:49:41 Date Recorded Body height Body mass index (BMI) Body weight Heart rate Systolic And Diastolic Provider Name and Address Organization Details Last Updated DateTime 03/08/2018 190.5 cm 23.4 kg/m2 23126.77 g 60 /min 122/74 mm[Hg] Sherri Link [facility] 03/08/2018 11:24:04 Social History Question Answer Notes LastModified by Organizat ion Details LastModified Time Tobacco Smoking Status Never Smoker Reyna Chaudhry [facility] 02/17/2018 15:53:50 Live Alone Or With Others? With Others Information not available 02/17/2018 Marital Status Informatio n not available 02/17/2018 What Was The Date Of Your Most Recent Tobacco Screening? 09/06/2018 Information n ot available 10/02/2019 Sex: Unknown Functional Status Question Answer Note LastModified by Organization D etails LastModified Time What is your level of alcohol consumption? None Information not available 02/17/2018 Mental Status None recorded. Family History Relationship Description Onset Age of this Age Resolved Age Notes LastModified by Organization Details LastModified Time Father Cerebrovascu lar accident [email or web address] Not available 01/2018 15:53:25 Medical History Condition Response Anxiety Disorder Y Stroke Y High Cholesterol Y Heart Disease Y Hypertension Y Past Encounters Encounter ID Performer Location Encounter Start Date Encounter Closed Date Diagnosis/Indication Diagnosis SNOMED-CT Code Diagnosis ICD10 Code Diagnosis IMO Codes Diagnosis Note [id number] JOSR DANG MD NEUROLOGY [facility] [address] [place] [address] 1 02/17/2018 15:21:46 02/20/2018 08:13:22 Ischemic stroke 558808029 I63.9 Subarachno id hemorrhage 57526776 I60.9 Carotid ar clare occlusion 182034455 I65.29 [id number] JOSR DANG MD NEUROLOGY [facility] [address] [place] [address] 1 03/08/2018 10:13:32 03/08/2018 11:50:59 Ischemic stroke 230774801 I63.9 Carotid ar clare occlusion 057432894 I65.29 [id number] JOSR DANG MD NEUROLOGY [facility] CLOS[facility] [address] [place] [address] 1 09/06/2018 12:42:26 09/06/2018 14:09:23 Carotid artery occlusion 279195859 I65.29 Ischemic stroke 84952255 2 I63.9 Health Concerns Section Related Observation LastModified by Organization Detai ls LastModified Time None Recorded Concern Status LastModified by Organization Details LastModified Time None Recorded Advance Directives Directive None Recorded Payers Insurance Date Sequence Insurance Name Policy Number Policy Vega Covered Member ID Vega Member ID Guarantor Name 07/09/2020 1 [place]ARE[place]ICARE[place] Lorenzo Hammer [id number] Lorenzo Hammer 07/09/2020 2 [employer] Lorenzo Hammer [id number] Lorenzo Hammer Notes Date Note Type Note Provider Name and Address Organization Details Recorded Time 02/17/2018 text/html This is a 67 year-old RH man seen at the request of Dr. Dawkins for evaluation of stroke. History was obtained from the patient and available records. The nite of 01/29, after doing some gardening work, he ate supper and later noticed abrupt onset of numbness and weakness involving the left hand. The hand felt foreign. He had trouble picking up his shoes. There was no clear leg weakness or facial droop (though this is mentioned in admit note) or slurred speech or headache or any other symptoms. Considered going to the ER but did not, and he was seen in his PCP's office the next day, and head CT was planned, and he went back to work that day. Still did not feel well, so family convinced him to go the [facility] ER. There, he had head CT which was felt to show small right parietal SAH. Possibility of underlying infarct could not be excluded based on adjacent mild hypoattenuation. I reviewed. He is on warfarin for atrial fib and aspirin, and both were stopped. INR was 1.4, and he was given vitamin K and, I think, FFP. Head CT was repeated the next day and stable. The left hand weakness seemed to be improving, and he was sent home, but later that day presented back to the hospital b/c of nausea and ?high blood pressure, observed again overnite, and head CT repeated and felt stable. He was seen by NSGY during his stay but not neurology. MRI planned but not possible at [facility] b/c of pacemaker. Since then, he has generally been doing better. Feels vaguely weak and tired still, but there have been no new focal neurological symptoms, no visual symptoms. Left hand is improved. He had MRI of the brain and MRA of the COW at [facility] last week. I do not have films for review, but report describes Went back to the ER the same day b/c his blood pressure was ?too high, and head CT was repeated yet again, felt stable. Last week, he had MRI at [facility] which showed evidence of acute/recent stroke in right parietal lobe and insular cortex (bright on DWI), with adjacent high signal in the subarachnoid space. MRA showed occlusion of the intracranial right carotid artery at the clinoid, at least, with reconstitution of vessels at COW, but decreased flow into right MCA. I can't tell from the report if the carotid occlusion starts intracranially or extends into the neck; MRA of neck not done. He has not had carotid studies in the past. No h/o stroke or TIA symptoms or amaurosis fugax otherwise. JOSR DANG MD [address] [place], [address], [facility] 03/01/2018 12:51:04 03/08/2018 text/html He was seen a few weeks ago. Generally he has been doing OK. He recognizes mild problems with the left hand but this is better. Reaching for car keys, perhaps, can feel a little clumsy or numb. CTA showed right carotid occlusion. followup head CT showed no blood, no obvious residual stroke reported He has had echocardiogram thru his maintenance coordinator. JOSR DANG MD [address] [place], [address], [facility] 03/23/2018 16:36:04 09/06/2018 text/html He was seen over the summer. Neurologically, he has been stable. Left hand feels a little numb stilln but much better than before. He is back working. There have been no new focal neurological symptoms. He is on aspirin. He never actually resumed warfarin. He is taking a statin (not on his list). Atrial fibrillation has been more active, apparently, and his maintenance coordinator would like to resume anticoagulation and (possibly) perform cardioversion from what I understand. JOSR DANG MD [address] [place], [address], [facility] 09/06/2018 17:14:52
--- OUTSIDE RECORDS SUMMARY | 2025-07-18 22:21 | XMS_ITS | Clinical Summary ---
Author Organization [employer] ([place], [place], [place], [place], [place]) Address [address] [place] [address] Care Team Providers Care Guest Services Ambassador Name Role Phone Marco Churchill MD Primary Care Provider + [phone] Allergies No known active allergies Medications rosuvastatin [...] Description 05/24/2025 3:00 AM EDT Clinical Support [facility] Electrophysiology [address] [place] [phone] Rhona Newton MD Encounter for adjustment or management of cardiac device (Primary Dx); NICM (nonischemic cardiomyopathy) (HCC); Chronic systolic congestive heart failure (HCC); Persistent atrial fibrillation (HCC); AICD (automatic cardioverter/defibril lator) present 04/22/2025 8:30 AM EDT Office Visit [facility] Electrophysiology [address] [place] [phone] Rhona Newton MD Persistent atrial fibrillation (HCC) [...] Date Chano rded Speak language other than Hong Konger at home Not on file 08/26/2023 Want [...] Description 10/21/2025 8:30 AM EDT Office Visit [facility] [address] [place] [address] Rhona Newton MD [address] [place] [address] [address] [place] [address] Health Maintenance Due Date Last Done Comments [...] 04/22/2026 04/22/2025 Medical Devices Implanted Type Area Heavy Forger Helper Device Identifier Shelf Expiration Date Model / Serial / Lot Icd-02/22/2017 Implanted:02/22 (Quantity not on file) ICD [employer] [id number] / [id number] / Procedures Procedure Name Priority Date/Time Associated Diagnosis Comments FS_MODEL_IP_ECG 12-LEAD Routine 04/22/2025 9:03 AM EDT Persistent atrial fibrillation (HCC) from Last 3 Months Results * ECG 12 lead (04/22/2025 9:03 AM EDT) us Rhona Newton MD ECG ORDERABLES Final Result from Last 3 Months Insurance [id number] (Home) [address] [place] [id number] MEDICARE PART A B [employer] [place] [id number] Advance Directives For more information, please contact: [phone] * Full Code (Latest Code Status on File) Date Activated Date Inactivated Comments 07/13/2022 10:06 AM 07/14/2022 3:29 PM * Full Code Date Activated Date Inactivated Comments 07/13/2022 5:58 AM 07/13/2022 10:05 AM Care Teams Guest Services Ambassador Relationship Specialty Start Date End Date Marco Churchill MD [address] [facility] [address] [place] [phone] PCP - General Family Medicine 06/25/22
--- OUTSIDE RECORDS SUMMARY | 2025-07-18 22:21 | XMS_ITS | Referral Summary ---
Author Organization [employer] ([place], [place], [place], [place], [place]) Address [address] [place] [address] Care Team Providers Care Production Expert Name Role Phone Marco Churchill MD Primary Care Provider + [phone] Encounters Date Type Department Care Team Description 05/24/2025 3:00 AM EDT Clinical Support [facility] Electrophysiology [address] [place] [phone] Rhona Newton MD Encounter for adjustment or management of cardiac device (Primary Dx); NICM (nonischemic cardiomyopathy) (HCC); Chronic systolic congestive heart failure (HCC); Persistent atrial fibrillation (HCC); AICD (automatic cardioverter/defibril lator) present 04/22/2025 Travel 04/22/2025 8:30 AM EDT Office Visit [facility] Electrophysiology [address] [place] [phone] Rhona Newton MD Persistent atrial fibrillation [...] Date Chano rded Speak language other than Faroese at home Not on file 08/26/2023 Want [...] Description 10/21/2025 8:30 AM EDT Office Visit [facility] Electrophysiology [address] [place], [place] [phone] Rhona Newton MD [address] [place] [address] [address] [place] [address] Medical Devices Implanted Type Area Calibration Checker Device Identifier Shelf Expiration Date Model / Serial / Lot Icd-02/22/2017 Implanted:02/22 (Quantity not on file) ICD [employer] [id number] / [id number] / Procedures Procedure Name Priority Date/Time Associated Diagnosis Comments FS_MODEL_IP_ECG 12-LEAD Routine 04/22/2025 9:03 AM EDT Persistent atrial fibrillation (HCC) from Last 3 Months Results * ECG 12 lead (04/22/2025 9:03 AM EDT) us Rhona Newton MD ECG ORDERABLES Final Result from Last 3 Months Insurance [id number] (Home) [address] [place] [id number] MEDICARE PART A B [employer] [place] [id number] Advance Directives For more information, please contact: [phone] * Full Code (Latest Code Status on File) Date Activated Date Inactivated Comments 07/13/2022 10:06 AM 07/14/2022 3:29 PM * Full Code Date Activated Date Inactivated Comments 07/13/2022 5:58 AM 07/13/2022 10:05 AM Care Teams Production Expert Relationship Specialty Start Date End Date Marco Churchill MD [address] [facility] [address] [place] [phone] PCP - General Family Medicine 06/25/22
--- OUTSIDE RECORDS SUMMARY | 2025-07-18 22:21 | XMS_ITS | Clinical Summary ---
Author Organization [facility] Address [address] [place] [address] Care Team Providers Care Rn Digestive Name Role Phone Marco Churchill MD Primary Care Provider [phone] Family History Medical History Relation Name Comments [...] 2001 UKY-Zoster Vaccines (1 of 2) 2001 [id number] Vaccine (4 - 2024- season) 2025 04/29/2021, [...] topic Insurance [id number] MEDICARE Care Teams Rn Digestive Relationship Specialty Start Date End Date Marco Churchill MD [address] [facility] [address] [place] [facility] - General 12/26/20
[2025-07-18 22:22] VITALS: O2SAT 94
[2025-07-18 22:24] VITALS: BP 159/97; PULSE 92; RESP 18; O2SAT 94
--- NOTE | 2025-07-18 22:32 | CT_ITS ---
PROCEDURE INFORMATION: Exam: CT Abdomen And Pelvis With Contrast Exam date and time: 07/18/2025 11:48 PM Age: 74 years old Clinical indication: Abdominal pain; Additional info: Lower abdominal pain, n/v TECHNIQUE: Imaging protocol: Computed tomography of the abdomen and pelvis with contrast. 3D rendering (Not supervised by radiologist): MIP and/or 3D reconstructed images were created by the technologist. Radiation optimization: All CT scans at this facility use at least one of these dose optimization techniques: automated exposure control; mA and/or kV adjustment per patient size (includes targeted exams where dose is matched to clinical indication); or iterative reconstruction. Contrast material: ISOVUE; Contrast volume: 70 ml; Contrast route: IV; COMPARISON: CT LUMBAR SPINE WO CON 02/09/2024 6:36 AM FINDINGS: Lungs: Moderate airspace disease in the superior segment of the left lower lobe. Right lower lung is clear. Heart: Heart is normal in size. Left atrial occlusion device noted. Liver: Minimally complex septated cysts noted in the liver, the largest measuring 3.1 cm in segment 7. No suspicious liver lesions. Gallbladder and biliary ducts: Normal. No calcified stones. No ductal dilation. Pancreas: Normal. No ductal dilation. Spleen: Normal. No splenomegaly. Adrenal glands: Normal. No mass. Kidneys and ureters: Normal. No hydronephrosis. Stomach and bowel: Unremarkable. No obstruction. No mucosal thickening. Appendix: No evidence of appendicitis. Intraperitoneal space: Unremarkable. No free air. No significant fluid collection. Vasculature: Unremarkable. No abdominal aortic aneurysm. Lymph nodes: Unremarkable. No enlarged lymph nodes. Urinary bladder: Unremarkable as visualized. Reproductive: Prostate gland is enlarged, measuring 5 cm in greatest diameter. Bones/joints: Moderate to severe degenerative disc changes throughout the lower spine. Mild levoscoliosis of the lumbar spine. No vertebral body compression. No acute fracture. Soft tissues: Unremarkable. IMPRESSION: 1. Moderate findings of left lower lobe pneumonia 2. No acute abnormality in the abdomen or pelvis. Incidental chronic findings as noted.
--- NOTE | 2025-07-18 22:32 | CT_ITS ---
PROCEDURE INFORMATION: Exam: CTA Chest With Contrast Exam date and time: 07/18/2025 11:48 PM Age: 74 years old Clinical indication: Shortness of breath; Additional info: Shortness of air, concern for potential hilar mass TECHNIQUE: Imaging protocol: Computed tomographic angiography of the chest with contrast. Exam focused on the arteries. 3D rendering (Not supervised by radiologist): MIP and/or 3D reconstructed images were created by the technologist. Radiation optimization: All CT scans at this facility use at least one of these dose optimization techniques: automated exposure control; mA and/or kV adjustment per patient size (includes targeted exams where dose is matched to clinical indication); or iterative reconstruction. Contrast material: ISOVUE; Contrast volume: 70 ml; Contrast route: INTRAVENOUS (IV); COMPARISON: CR XR CHEST 2V 07/17/2025 12:44 PM FINDINGS: Tubes, catheters and devices: Left atrial appendage occlusion device noted. Cardiac pacemaker in place. Pulmonary arteries: Normal. No pulmonary emboli. Aorta: Unremarkable. No aortic aneurysm. No aortic dissection. Lungs: Moderate airspace disease throughout the superior segment of the left lower lobe. Mild right basilar atelectasis. Pleural spaces: Unremarkable. No pneumothorax. No pleural effusion. Heart: Unremarkable. No cardiomegaly. No pericardial effusion. Lymph nodes: Unremarkable. No enlarged lymph nodes. Diaphragm: Moderate elevation of the right hemidiaphragm peroneal Bones/joints: Moderate degenerative changes throughout the mid to lower thoracic spine. Mild focal lingular infiltrate. No vertebral body compression. No acute fracture. Soft tissues: Unremarkable. IMPRESSION: Moderate findings of pneumonia in the left lower lobe and minimal lingular infiltrate
--- NOTE | 2025-07-18 22:35 | ED_ITS ---
Discharge Plan Disposition Patient Disposition: Admitted Clinical Impressions Clinical Impression: Elevated troponin, Cough with hemoptysis Left lower lobe pneumonia Qualifiers: Pneumonia type: due to unspecified organism Qualified Code(s): J18.9 - Pneumonia, unspecified organism Discharge ED Provider: Ricardo Ba HPI <Colette Katz DO - Last Filed: 07/18/25 23:30> General Chief Complaint: Shortness of Breath/Dyspnea Stated Complaint: soa Time Seen by Provider: 07/18/25 22:18 Mode of Arrival: Ambulatory Source of Information: Patient Description of Symptoms (Recalled from ER Triage Doc. by RN): PT presents to the ED for evaluation of SOA. PT was dx with bronchitis x2 days ago and was prescribed azithromycin. PT started abx on this date. PT stated he is coughing up phlegm. Stated his breathing is worse when he lays flat History of Present Illness HPI narrative: This is a 74-year-old male with history of stroke on daily aspirin, CAD and reported previous silent DE, ICD, heart failure, CKD, and long-term tobacco smoking who presents emergency department with shortness of breath and cough. Symptoms have been acute in onset and worsening over the past 2 to 3 days. The patient notes worsening dyspnea when laying flat and with activity. He denies any chest pain, however he notes epigastric discomfort and a fullness sensation. He occasionally is coughing up blood-tinged sputum. He denies any recent fever, chills, malaise, or weight loss. He states he recently had a chest x-ray on an outpatient basis that was concerning for a potential mass in the middle of his chest. Related Data Home Medications ?Medication ?Instructions ?Recorded ?Confirmed duloxetine 30 mg capsule,delayed 30 mg PO DAILY Anxiet y 08/03/18 07/17/25 release rosuvastatin 20 mg tablet 20 mg PO DAILY High choleste rol 08/03/18 07/17/25 bisoprolol fumarate 5 mg tablet 5 mg PO DAILY htn 05/0507/17/25 Previous Rx's ?Medication ?Instructions ?Recorded clindamycin HCl 300 mg capsule 300 mg PO Q8H 7 days #2 1 caps 06/25/23 neomycin-bacitracn Zn-polymyx 3.5 1 applic topical TID 10 days #30 06/25/23 mg-400 unit-5,000 unit/gram top grams oint (Triple Antibiotic) benzonatate 100 mg capsule 100 mg PO BID PRN cough #20 caps 07/17/25 prednisone 10 mg tablet 10 mg PO BID #8 tabs 5 Allergies Allergy/AdvReac Type Severity Reaction Status Date / Time Penicillins AdvReac Unknown Verified 07/17/25 10:49 Penicillin Allergy Unknown Rash Uncoded 07/17/25 10:35 PFS <Colette Katz DO - Last Filed: 07/18/25 23:30> [facility] Disclaimer: The information contained in this section may have been updated after the patient was seen, as this information can be updated by other users. Social History Smoking Status: Light tobacco smoker alcohol intake: never current occupational status: retired Travel in the last 8 weeks?: Inside the [place] Have you lived/traveled outside US in past 30 days?: No Contact w/someone who lives/traveled outside US past 30 days?: No Exposure to someone with infectious disease in past 14 days?: No Do you have a fever (greater than 100.4 F or 38 C)?: No Have you tested positive for COVID-19?: No Exposed to someone with COVID-19 in past 14 days?: No Do you have a sore throat?: No Do you have a cough?: No Do you have any weakness?: No Do you have any diarrhea?: No Are you experiencing any unusual bleeding?: No Do you have any muscle aches/pain?: No Do you have any abdominal pain?: No Are you experiencing loss of taste or smell?: No Other Medical History Have you received the Flu Vaccine for this season: No Have you received the Pneumonia Vaccine: Yes <Colette Katz DO - Last Filed: 07/18/25 23:30> ROS Obtained: Yes All systems reviewed & no additional complaints except as documented Physical Exam <Colette Katz DO - Last Filed: 07/18/25 23:30> General General appearance: alert and in no apparent distress Head Head exam: atraumatic Eye Eye exam: Present normal appearance, PERRL and EOMI ENT ENT exam: Present mucous membranes moist Neck Neck exam: Present normal inspection and full ROM; Absent tenderness Chest Chest inspection: Present symmetric chest wall rise; Absent tenderness Respiratory Respiratory exam: Present wheezes (Mild expiratory wheeze present diffusely); Absent respiratory distress or accessory muscle use Cardiovascular Cardiovascular exam: Present regular rate and normal rhythm Abdominal Exam Abdominal exam: Present soft; Absent guarding Abdominal tenderness: Present epigastrium (Mild epigastric tenderness) Extremities Exam Extremities exam: Present full ROM; Absent tenderness Neurological Exam Neurological exam: Present alert and oriented X3 Psychiatric Psychiatric exam: Present normal affect Skin Skin exam: Present warm and dry HEART Score <Colette Katz DO - Last Filed: 07/18/25 23:30> HEART Score HEART Score assessment performed?: Yes HEART Score: 6 <Ricardo Ba MD - Last Filed: 07/19/25 01:22> HEART Score History (anamnesis): Slightly suspicious ECG: Non-specific disturbance Age: >65 years Risk factors: Atherosclerosis history Troponin: 1-3x normal limit HEART Score: 6 Critical Care <Colette Katz DO - Last Filed: 07/18/25 23:30> Critical Care Time Critical Care Time: No Medical Decision Making <Colette Katz DO - Last Filed: 07/18/25 23:30> Edwin Inquiry Pt receiving controlled substance: No Edwin was queried for this patient: No Vital Signs Vital Signs: 07/18/25 22:19 07/18/25 22:22 07/18/25 22:24 Temperature 98.6 F Temperature Source Oral Pulse Rate 92 H Pulse Rate [Right] 92 H Respiratory Rate 18 18 Blood Pressure 159/97 H Blood Pressure [Right Arm] 159/97 H Blood Pressure Mean [Right Arm] 117 02 Sat by Pulse Oximetry 94 L 94 L 94 L Oxygen Delivery Method Room Air Room Air Room Air 07/18/25 23:17 Temperature Temperature Source Pulse Rate 86 Pulse Rate [Right] Respiratory Rate 18 Blood Pressure 145/87 H Blood Pressure [Right Arm] Blood Pressure Mean [Right Arm] 02 Sat by Pulse Oximetry 92 L Oxygen Delivery Method Room Air Lab Data Labs: Lab Results 07/18/25 22:20: WBC 12.8 H, RBC 4.39 L, Hgb 13.8 L, Hct 41.9 L, MCV 95.4 H, MCH 31.4 H, MCHC 32.9, RDW 12.7, Plt Count 169, MPV 10.8 H, Neut % (Auto) 81.4 H, L ymph % (Auto) 7.0 L, Sterling % (Auto) 10.7 H, Eos % (Auto) 0.1, Baso % (Auto) 0.4, Neut # (Auto) 10.4 H, Lymph # (Auto) 0.9, Sterling # (Auto) 1.4 H, Eos # (Auto) 0.0, Baso # (Auto) 0.1, VBG pH 7.39, VBG pCO2 42.5, VBG pO2 34.4, VBG HCO3 25.3, VBG Total CO2 26.6, VBG O2 Saturation 65.4, VBG Base Excess 0.4, VBG Lactic Acid 1.3, Sodium 133 L, Potassium 3.9, Chloride 98, Carbon Dioxide 29, Anion Gap 9.9, BUN 20, Creatinine 1.20, Estimated Creat Clear 46, Estimated GFR 59, Est GFR ( Amer) 72, Glucose 109 H, Calcium 9.2, Total Bilirubin 0.8, AST 39, ALT 20, Alkaline Phosphatase 70, Troponin I 0.06 H, NT-Pro-B Natriuret Pep 530 H, Total Protein 7.8, Albumin 4.6, Globulin 3.2, Albumin/Globulin Ratio 1.4, Lipase 15 L, HCV Ab ROBERTO w/Rflx PCR Qn Negative, HIV Ag/Ab Combo Qual Negative 07/18/25 22:20 07/18/25 22:20 Response Orders (Tests/Meds): ED MEDICATIONS Generic Name Dose Route Start Last Admin Trade Name Freq PRN Reason Stop Dose Admin Sodium Chloride 3 ml 07/19/25 00:43 Sodium Chloride 3% 15ml [facility] 08/18/25 00:42 ONCE PRN INDUCE SPUTUM COLLECTION Discontinued Medications Generic Name Dose Route Start Last Admin Trade Name Freq PRN Reason Stop Dose Admin Albuterol/Ipratropium 3 ml 07/18/25 22:32 07/18/25 22:40 Ipratropium/Albuterol 3 Ml [facility] 07/18/25 22:33 3 ml ONCE ONE Administration Aspirin 324 mg 07/19/25 00:41 07/19/25 00:45 Aspirin 81mg Chewable Tablet PO 07/19/25 00:42 324 mg ONCE ONE Administration Ceftriaxone Sodium 2 gm/ 100 mls @ 200 mls/hr 07/19/25 00:44 07/19/25 01:02 Sodium Chloride IV 07/19/25 01:13 200 mls/hr ONCE ONE Administration Azithromycin 500 mg/ Sodium 250 mls @ 250 mls/hr 07/19/25 00:44 Chloride IV 07/19/25 00:45 ONCE ONE Iopamidol 70 ml 07/18/25 23:59 07/19/25 00:00 Iopamidol-370 (76%);100ml Bottle IV 07/19/25 00:00 70 ml ONCE ONE Administration Sodium Chloride 50 ml 07/18/25 23:59 07/19/25 00:00 0.9 % Sodium Chloride 50 Ml Vial IV 07/19/25 00:00 50 ml ONCE ONE Administration Sodium Chloride 10 ml 07/18/25 23:59 07/19/25 00:00 Sodium Chloride 0.9% 10ml Syr (Rad Only) IV 07/19/25 00:00 10 ml ONCE ONE Administration ORDERS Category Date Time Status CT abdomen pelvis w con Stat Cat Scan 07/18/25 22:[address] angio chest PE protocol Stat Cat Scan 07/18/25 22:32 Completed BNP [NT Pro Brain Natriuretic Pep.] Stat Lab 07/18/25 22:20 Completed CBC w/Auto Diff [Complete Blood Count Auto Diff] Stat Lab 07/18/25 22:20 Completed CMP [Comprehensive Metabolic Panel] Stat Lab 07/18/25 22:20 Completed Full Resp Panel w/COVID ([facility]) Routine Lab 07/19/25 01:11 Received HIV Combo Stat Lab 07/18/25 22:20 Completed Hepatitis C Ab Qual. W/ RFX Stat Lab 07/18/25 22:20 Completed Lipase Stat Lab 07/18/25 22:20 Completed Trop I [Troponin I] Stat Lab 07/18/25 22:20 Completed Troponin I Q3H Lab 07/19/25 01:45 Ordered Troponin I Q3H Lab 07/19/25 04:45 Ordered Blood Culture Stat Micro 07/19/25 00:55 Received Sputum Culture & Gram Stain Stat Micro 07/19/25 01:12 Received VBG [Venous Blood Gas] Stat RT 07/18/25 22:20 Completed ECG Data Tracing #1: Attestation: I reviewed this ECG and interpreted as documented below: ECG Narrative: EKG shows ventricularly paced rhythm at a rate of 87. Normal [place] and QTc intervals. No acute ST elevations or signs of acute subendocardial or transmural ischemia. MDM Narrative Medical Decision Narrative: In summary, this is a 74y/o male presenting the emergency department for shortness of breath and cough. Differential diagnosis includes but is not limited to: Pneumonia, pleural effusion, bronchitis, malignancy, PE On my initial assessment, the patient is hemodynamically stable in no acute distress. Physical exam is notable for bilateral expiratory wheeze. The patient is saturating well on room air and speaking in complete sentences, however does prefer to sit upright. I reviewed the patient's most recent chest x-ray from 07/17/2025. He does have fullness of the left hilum in addition to a chronically elevated right hemidiaphragm. Workup will be focused on evaluating for any infectious etiology versus PE versus intrathoracic mass with CT PE. ECG is nonischemic. See above for full interpretation. Initial troponin however is elevated at 0.06. Will obtain repeat. Patient received DuoNeb for treatment. Labs personally interpreted which demonstrate mild nonspecific leukocytosis. Mild anemia. Platelets within normal limits. VBG shows no acute acid-base abnormality with normal lactate. CMP shows no significant electrolyte abnormality. No MISA. LFTs grossly normal. Lipase within normal limits. BNP mildly elevated at 530. The patient does have a known history of heart failure. Does not appear volume overloaded on exam. Care transferred to oncoming ED physician Dr. Ba pending completion of CT scan and repeat troponin. <Ricardo Ba MD - Last Filed: 07/19/25 01:22> Vital Signs Vital Signs: 07/18/25 22:19 07/18/25 22:22 07/18/25 22:24 Temperature 98.6 F Temperature Source Oral Pulse Rate 92 H Pulse Rate [Right] 92 H Respiratory Rate 18 18 Blood Pressure 159/97 H Blood Pressure [Right Arm] 159/97 H Blood Pressure Mean [Right Arm] 117 02 Sat by Pulse Oximetry 94 L 94 L 94 L Oxygen Delivery Method Room Air Room Air Room Air 07/18/25 23:17 Temperature Temperature Source Pulse Rate 86 Pulse Rate [Right] Respiratory Rate 18 Blood Pressure 145/87 H Blood Pressure [Right Arm] Blood Pressure Mean [Right Arm] 02 Sat by Pulse Oximetry 92 L Oxygen Delivery Method Room Air Lab Data Labs: Lab Results 07/18/25 22:20: WBC 12.8 H, RBC 4.39 L, Hgb 13.8 L, Hct 41.9 L, MCV 95.4 H, MCH 31.4 H, MCHC 32.9, RDW 12.7, Plt Count 169, MPV 10.8 H, Neut % (Auto) 81.4 H, L ymph % (Auto) 7.0 L, Sterling % (Auto) 10.7 H, Eos % (Auto) 0.1, Baso % (Auto) 0.4, Neut # (Auto) 10.4 H, Lymph # (Auto) 0.9, Sterling # (Auto) 1.4 H, Eos # (Auto) 0.0, Baso # (Auto) 0.1, VBG pH 7.39, VBG pCO2 42.5, VBG pO2 34.4, VBG HCO3 25.3, VBG Total CO2 26.6, VBG O2 Saturation 65.4, VBG Base Excess 0.4, VBG Lactic Acid 1.3, Sodium 133 L, Potassium 3.9, Chloride 98, Carbon Dioxide 29, Anion Gap 9.9, BUN 20, Creatinine 1.20, Estimated Creat Clear 46, Estimated GFR 59, Est GFR ( Amer) 72, Glucose 109 H, Calcium 9.2, Total Bilirubin 0.8, AST 39, ALT 20, Alkaline Phosphatase 70, Troponin I 0.06 H, NT-Pro-B Natriuret Pep 530 H, Total Protein 7.8, Albumin 4.6, Globulin 3.2, Albumin/Globulin Ratio 1.4, Lipase 15 L, HCV Ab ROBERTO w/Rflx PCR Qn Negative, HIV Ag/Ab Combo Qual Negative Response Orders (Tests/Meds): ED MEDICATIONS Generic Name Dose Route Start Last Admin Trade Name Freq PRN Reason Stop Dose Admin Sodium Chloride 3 ml 07/19/25 00:43 Sodium Chloride 3% 15ml Neb 08/18/25 00:42 ONCE PRN INDUCE SPUTUM COLLECTION Discontinued Medications Generic Name Dose Route Start Last Admin Trade Name Freq PRN Reason Stop Dose Admin Albuterol/Ipratropium 3 ml 07/18/25 22:32 07/18/25 22:40 Ipratropium/Albuterol 3 Ml Neb 07/18/25 22:33 3 ml ONCE ONE Administration Aspirin 324 mg 07/19/25 00:41 07/19/25 00:45 Aspirin 81mg Chewable Tablet PO 07/19/25 00:42 324 mg ONCE ONE Administration Ceftriaxone Sodium 2 gm/ 100 mls @ 200 mls/hr 07/19/25 00:44 07/19/25 01:02 Sodium Chloride IV 07/19/25 01:13 200 mls/hr ONCE ONE Administration Azithromycin 500 mg/ Sodium 250 mls @ 250 mls/hr 07/19/25 00:44 Chloride IV 07/19/25 00:45 ONCE ONE Iopamidol 70 ml 07/18/25 23:59 07/19/25 00:00 Iopamidol-370 (76%);100ml Bottle IV 07/19/25 00:00 70 ml ONCE ONE Administration Sodium Chloride 50 ml 07/18/25 23:59 07/19/25 00:00 0.9 % Sodium Chloride 50 Ml Vial IV 07/19/25 00:00 50 ml ONCE ONE Administration Sodium Chloride 10 ml 07/18/25 23:59 07/19/25 00:00 Sodium Chloride 0.9% 10ml Syr (Rad Only) IV 07/19/25 00:00 10 ml ONCE ONE Administration ORDERS Category Date Time Status CT abdomen pelvis w con Stat Cat Scan 07/18/25 22:[address] angio chest PE protocol Stat Cat Scan 07/18/25 22:32 Completed BNP [NT Pro Brain Natriuretic Pep.] Stat Lab 07/18/25 22:20 Completed CBC w/Auto Diff [Complete Blood Count Auto Diff] Stat Lab 07/18/25 22:20 Completed CMP [Comprehensive Metabolic Panel] Stat Lab 07/18/25 22:20 Completed Full Resp Panel w/COVID ([facility]) Routine Lab 07/19/25 01:11 Received HIV Combo Stat Lab 07/18/25 22:20 Completed Hepatitis C Ab Qual. W/ RFX Stat Lab 07/18/25 22:20 Completed Lipase Stat Lab 07/18/25 22:20 Completed Trop I [Troponin I] Stat Lab 07/18/25 22:20 Completed Troponin I Q3H Lab 07/19/25 01:45 Ordered Troponin I Q3H Lab 07/19/25 04:45 Ordered Blood Culture Stat Micro 07/19/25 00:55 Received Sputum Culture & Gram Stain Stat Micro 07/19/25 01:12 Received VBG [Venous Blood Gas] Stat RT 07/18/25 22:20 Completed MDM Narrative Medical Decision Narrative: In summary, this is a 74y/o male presenting the emergency department for shortness of breath and cough. Differential diagnosis includes but is not limited to: Pneumonia, pleural effusion, bronchitis, malignancy, PE On my initial assessment, the patient is hemodynamically stable in no acute distress. Physical exam is notable for bilateral expiratory wheeze. The patient is saturating well on room air and speaking in complete sentences, however does prefer to sit upright. I reviewed the patient's most recent chest x-ray from 07/17/2025. He does have fullness of the left hilum in addition to a chronically elevated right hemidiaphragm. Workup will be focused on evaluating for any infectious etiology versus PE versus intrathoracic mass with CT PE. ECG is nonischemic. See above for full interpretation. Initial troponin however is elevated at 0.06. Will obtain repeat. Patient received DuoNeb for treatment. Labs personally interpreted which demonstrate mild nonspecific leukocytosis. Mild anemia. Platelets within normal limits. VBG shows no acute acid-base abnormality with normal lactate. CMP shows no significant electrolyte abnormality. No MISA. LFTs grossly normal. Lipase within normal limits. BNP mildly elevated at 530. The patient does have a known history of heart failure. Does not appear volume overloaded on exam. Care transferred to oncoming ED physician Dr. Ba pending completion of CT scan and repeat troponin. Jesenia ABBASI: I assumed care of the patient at the time of handoff from the prior provider. On reassessment patient remains hemodynamically stable. CT imaging was independently interpreted by me. He has left lower lobe infiltrates. The right middle lobe also appears somewhat collapsed. No obvious abnormalities noted on the CT of the abdomen. Blood cultures were obtained. Patient was initiated on IV antibiotic therapy with ceftriaxone and azithromycin for commune acquired pneumonia. Interactive discussion was had with hospitalist on-call for admission.
--- NOTE | 2025-07-18 22:37 | PC.NURSE ---
Contacted RT for VBG sent to lab
[2025-07-18] MEDS: IPRATROPIUM/ALBUTEROL 3 ML NEB IH (22:40)
[2025-07-18 22:44] LABS: Hematocrit 41.9 % (42.0-52.0); Hemoglobin 13.8 g/dL (14.1-18.0); Immature Granulocytes % 0.4 %; Mean Corpuscular HGB Conc 32.9 g/dL (31.8-35.4); Mean Corpuscular Hemoglobin 31.4 pg (27.0-31.2); Mean Corpuscular Volume 95.4 fl (80-94); Nucleated Red Blood Cells % 0 %; Platelet Count 169 K/mm3 (142-424); Red Blood Count 4.39 M/mm3 (4.60-6.20); Red Cell Distribution Width-SD 44.9 fL; White Blood Count 12.8 K/mm3 (4.8-10.8)
[2025-07-18 22:48] LABS: Lactate Venous 1.3 mmol/L (0.4-2.0); VBG HCO3 25.3 mmol/L (23-30); VBG PCO2 42.5 mmol/L (35-51); VBG PH 7.39 mmol/L (7.31-7.41); VBG PO2 34.4 mmol/L (28-40)
[2025-07-18 22:49] LABS: Alanine Aminotransferase 20 U/L (12-78); Albumin Level 4.6 g/dl (3.5-5.0); Albumin/Globulin Ratio 1.4 (1.1-1.8); Alkaline Phosphatase 70 U/L (38-126); Anion Gap 9.9 mEq/L (5-15); Aspartate Amino Transferase 39 U/L (17-59); Bilirubin,Total 0.8 mg/dl (0.2-1.3); Blood Urea Nitrogen 20 mg/dl (9-20); Calcium 9.2 mg/dl (8.4-10.2); Carbon Dioxide 29 mmol/L (22.0-30.0); Chloride 98 mmol/L (98-107); Creatinine Clearance Estimated 46 mL/min (50-200); Creatinine,Serum 1.20 mg/dl (0.66-1.25); Estimated Glomerular Filt Rate 59 ml/min (>60); GFR (African American) 72 ML/MIN (>60); Globulin 3.2 g/dL (1.3-3.2); Glucose 109 mg/dl (74-100); Lipase 15 U/L (23-300); Potassium 3.9 mmoL/L (3.5-5.1); Sodium 133 mmol/L (136-145); Total Protein,Serum 7.8 g/dl (6.3-8.2)
[2025-07-18 22:58] LABS: NT Pro Brain Natriuretic Pep. 530 pg/mL (0-125)
[2025-07-18 23:01] LABS: Troponin I 0.06 ng/ml (0.00-0.034)
[2025-07-18 23:17] VITALS: BP 145/87; PULSE 86; RESP 18; O2SAT 92
[2025-07-18 23:29] LABS: Hepatitis C Ab Qual. W/ RFX NEGATIVE (Negative)
[2025-07-19] VITALS (43 sets, daily range): BP systolic 112–174; BP diastolic 54–90; PULSE 72–108; RESP 11–25; TEMP 36.6–37.7; O2SAT 77–95; BMI 21.7
[2025-07-19] MEDS: SODIUM CHLORIDE 0.9% 10ML SYR (RAD ONLY) 10 ML IV
[2025-07-19] MEDS: IOPAMIDOL-370 (76%);100ML BOTTLE 70 ML IV
[2025-07-19] MEDS: 0.9 % SODIUM CHLORIDE 50 ML VIAL IV
[2025-07-19] MEDS: ASPIRIN 81MG CHEWABLE TABLET 324 MG PO (00:45)
[2025-07-19 01:18] LABS: Adenovirus,PCR Not Detected (NotDetected); Chlamydophila Pneumoniae, PCR Not Detected (NotDetected); Coronavirus 19, PCR Not Detected (NotDetected); Coronovirus HKU1,PCR Not Detected (NotDetected); Influenza A, PCR Not Detected (NotDetected); Influenza AH1, 2009 Not Detected (NotDetected); Influenza AH1, PCR Not Detected (NotDetected); Influenza AH3,PCR Not Detected (NotDetected); Influenza B, PCR Not Detected (NotDetected); Mycoplasma Pneumoniae, PCR Not Detected (NotDetected); Parainfluenza 1, PCR Not Detected (NotDetected); Parainfluenza 2, PCR Not Detected (NotDetected); Parainfluenza 3, PCR Not Detected (NotDetected); Parainfluenza 4, PCR Not Detected (NotDetected)
--- NOTE | 2025-07-19 01:45 | PC.NURSE ---
Patient admitted to ICU unit via wheelchair from ED @01:30am
--- NOTE | 2025-07-19 02:03 | P.HP_ITS ---
<Statement entered by Jason Canada MD - 07/23/25 15:57> Agree with plan of care as outlined by the TAX ASSOCIATE ATTORNEY. History of Present Illness *Admission Date: 07/19/25 *Reason for visit:: Shortness of breath *History of present illness: This is a 74-year-old male who has a past medical history significant for coronary artery disease, HFrEF (patient has AICD/pacemaker set at 65), chronic kidney disease, [place], and bundle branch block who presents with a chief complaint of shortness of breath, cough, and bloody sputum. Due to patient's symptoms, he presented to the emergency room for evaluation. While in the emergency room, CT scan of the chest revealed moderate lingular infiltrate. CT scan of the abdomen and pelvis was negative for any acute intra-abdominal intrapelvic process. Patient did have elevation in his initial troponin; however, his EKG revealed ventricular paced, QTc of 412, left axis shift deviation, and negative STEMI. Due to patient's symptoms, hospital medicine was consulted for further management. During my evaluation of the patient, patient states he has been experiencing a for symptomology for 2-3 days. Patient reports that he has been having back pain that radiates to the front of his chest. He reports he has some inability to lay flat. Patient does have a library media specialist at [place] he has a preference to see his personal library media specialist. Patient states that after his pacemaker placement and cardiac ablation his cardiac symptoms improved. He has known HFrEF. Patient does not know his EF. Patient had a provocative workup performed and 2019 that showed an EF of 42%. He is currently denying any chest pain, lightheadedness, dizziness, rigors, nausea, vomiting, lower extremity swelling, headache, or diarrhea. Patient does report having a subjective fever but did not check his temperature. Additional pertinent labs obtained include a white blood cell count of 12.8, red blood cell count of 4.39, hemoglobin 13.8, hematocrit 41.9, neutrophils 81.4%, sodium 133, blood glucose 109, initial troponin 0.06, and BNP of 530. [facility] Disclaimer: The information contained in this section may have been updated after the patient was seen, as this information can be updated by other users. Social History Smoking Status: Light tobacco smoker alcohol intake: never current occupational status: retired Travel in the last 8 weeks?: Inside the [place] Have you lived/traveled outside US in past 30 days?: No Contact w/someone who lives/traveled outside US past 30 days?: No Exposure to someone with infectious disease in past 14 days?: No Do you have a fever (greater than 100.4 F or 38 C)?: No Have you tested positive for COVID-19?: No Exposed to someone with COVID-19 in past 14 days?: No Do you have a sore throat?: No Do you have a cough?: No Do you have any weakness?: No Do you have any diarrhea?: No Are you experiencing any unusual bleeding?: No Do you have any muscle aches/pain?: No Do you have any abdominal pain?: No Are you experiencing loss of taste or smell?: No Other Medical History Have you received the Flu Vaccine for this season: No Have you received the Pneumonia Vaccine: No Review of Systems Review of Systems Review of systems:: pertinent systems reviewed and negative unless documented below Constitutional Constitutional: Reports chills and Reports fever(s) Eyes Eyes: Reports system reviewed and no additional complaints, except as documented ENT Ears, Nose, Mouth, and Throat: Reports system reviewed and no additional complaints, except as documented *Cardiovascular Cardiovascular: Reports dyspnea *Respiratory Respiratory: Reports cough, Reports dyspnea and Reports hemoptysis *Gastrointestinal Gastrointestinal: Reports abdominal pain *Genitourinary Genitourinary: Reports system reviewed and no additional complaints, except as documented *Musculoskeletal Musculoskeletal: Reports system reviewed and no additional complaints, except as documented Integumentary/Breasts Skin/Breast: Reports system reviewed and no additional complaints, except as documented *Neurologic Neurologic: Reports system reviewed and no additional complaints, except as documented Psychiatric Psychiatric: Reports system reviewed and no additional complaints, except as documented Endocrine Endocrine: Reports system reviewed and no additional complaints, except as documented Hematologic/Lymphatic Hematologic/Lymphatic: Reports system reviewed and no additional complaints, except as documented Allergic/Immunologic Allergic/Immunologic: Reports system reviewed and no additional complaints, except as documented Meds Home Medications and Allergies Home Medications ?Medication ?Instructions ?Recorded ?Confirmed ?Type duloxetine 30 mg capsule,delayed 30 mg PO DAILY Anxiet y 08/03/18 07/19/25 History release rosuvastatin 20 mg tablet 20 mg PO DAILY High choleste rol 08/03/18 07/19/25 History bisoprolol fumarate 5 mg tablet 5 mg PO DAILY htn 11/0 05/0507/19/25 History New Prescriptions to Start Prescriptions: Allergies Allergy/AdvReac Type Severity Reaction Status Date / Time Penicillins AdvReac Unknown Verified 07/17/25 10:49 Penicillin Allergy Unknown Rash Uncoded 07/17/25 10:35 Exam Data for Last 24 hours Vital signs and Labs for Last 24 Hours: Temp Pulse Resp BP Pulse Ox O2 Del Method 98.6 F 85 21 127/78 95 Room Air 07/19/25 01:41 07/19/25 01:41 07/19/25 01:41 07/19/25 01:41 07/19/25 01:41 07/19/25 01:41 Laboratory Results - last 24 hr 07/18/25 22:20: WBC 12.8 H, RBC 4.39 L, Hgb 13.8 L, Hct 41.9 L, MCV 95.4 H, MCH 31.4 H, MCHC 32.9, RDW 12.7, Plt Count 169, MPV 10.8 H, Neut % (Auto) 81.4 H, Lymph % (Auto) 7.0 L, [place] % (Auto) 10.7 H, Eos % (Auto) 0.1, Baso % (Auto) 0.4, Neut # (Auto) 10.4 H, Lymph # (Auto) 0.9, [place] # (Auto) 1.4 H, Eos # (Auto) 0.0, Baso # (Auto) 0.1, VBG pH 7.39, VBG pCO2 42.5, VBG pO2 34.4, VBG HCO3 25.3, VBG Total CO2 26.6, VBG O2 Saturation 65.4, VBG Base Excess 0.4, VBG Lactic Acid 1.3, Sodium 133 L, Potassium 3.9, Chloride 98, Carbon Dioxide 29, Anion Gap 9.9, BUN 20, Creatinine 1.20, Estimated Creat Clear 46, Estimated GFR 59, Est GFR ( Amer) 72, Glucose 109 H, Calcium 9.2, Total Bilirubin 0.8, AST 39, ALT 20, Alkaline Phosphatase 70, Troponin I 0.06 H, NT-Pro-B Natriuret Pep 530 H, Total Protein 7.8, Albumin 4.6, Globulin 3.2, Albumin/Globulin Ratio 1.4, Lipase 15 L, HCV Ab ROBERTO w/Rflx PCR Qn Negative, HIV Ag/Ab Combo Qual Negative I & O for Last 24 hours: Intake & Output 07/16/25 07/17/25 07/18/25 07/19/25 23:59 23:59 23:59 23:59 Weight 58.967 kg 80.785 kg Constitutional Constitutional: no acute distress, thin and cooperative *Routine HEENT Exam Head: Present normocephalic and atraumatic Eye: Present EOMI, PERRL and normal accommodation ENT: Present mucous membranes moist *Routine Neck Exam Neck: Present supple, full ROM and trachea midline *Routine Respiratory Exam Respiratory: Present rhonchi, normal respiratory effort, able to speak in complete sentences and symmetric chest movement *Routine Cardiovascular Exam Cardiovascular: Present Normal S1, Normal S2 and other Comments: Ventricular paced *Routine Abdominal Exam Abdominal: Present soft and normoactive bowel sounds *Routine Rectal Exam Rectal:: deferred *Routine Genitalia Exam Genitalia:: deferred *Routine Extremities Exam Extremities: Present pulses intact and normal capillary refill Routine Back/Spine/Pelvis Exam Back/Spine: Present full ROM *Routine Skin Exam Skin: Present intact, dry, warm and normal turgor *Routine Neurological Exam Neurological: Present alert, oriented X3, CN II-XII intact, moving all extremities and normal speech Routine Psychiatric Exam Psychiatric: Present normal affect, normal thought process, good insight and good judgment H&P: Result Impressions 74-year-old male who presents with a chief complaint of shortness of air and cough with hemoptysis found to have imaging consistent with lower lobe pneumonia. Did have some hemoptysis but is without any anticoagulants as an outpatient. Troponin was elevated however this may be due to chronic stress on the ventricles less likely NSTEMI Assessment and Plan *Assessment and plan (1) Left lower lobe pneumonia: Status: Acute Qualifiers: Pneumonia type: due to unspecified organism Qualified Code(s): J18.9 - Pneumonia, unspecified organism Category: Medical Code(s): J18.9 - Pneumonia, unspecified organism (2) Leukocytosis: Status: Acute Qualifiers: Leukocytosis type: unspecified Qualified Code(s): D72.829 - Elevated white blood cell count, unspecified Category: Medical Code(s): D72.829 - Elevated white blood cell count, unspecified (3) Cough with hemoptysis: Status: Acute Category: Medical Code(s): R04.2 - Hemoptysis (4) Elevated troponin: Status: Acute Category: Medical Code(s): R79.89 - Other specified abnormal findings of blood chemistry (5) Elevated brain natriuretic peptide (BNP) level: Status: Acute Category: Medical Code(s): R79.89 - Other specified abnormal findings of blood chemistry (6) Macrocytosis: Status: Acute Category: Medical Code(s): D75.89 - Other specified diseases of blood and blood-forming organs Plan Assessment: Left lower lobe community-acquired pneumonia: Most likely bacterial Leukocytosis Hemoptysis - Will continue 1 g Rocephin IV daily - Patient did receive 500 mg of azithromycin; will continue 250 mg p.o. 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 twice daily DuoNebs every 6 hours 4 mg Zofran IV push every 8 hours for nausea ROM Sputum for culture Blood cultures x 2 Full code This patient is a patient of Dr. Churchill in the a.m. we will transition patient to his care I will update covering physician in the a.m. and I look forward to more input
[2025-07-19 02:24] LABS: Troponin I 0.05 ng/ml (0.00-0.034)
[2025-07-19] MEDS: AZITHROMYCIN 500 MG in 0.9 % SODIUM CHLORIDE 250 ML 250 MG IV (02:30)
[2025-07-19] MEDS: IPRATROPIUM/ALBUTEROL 3 ML NEB IH ×2 (06:03→11:36)
[2025-07-19 06:09] LABS: Chloride 98 mmol/L (98-107)
[2025-07-19 06:10] LABS: Hematocrit 38.4 % (42.0-52.0); Immature Granulocytes % 0.3 %; Mean Corpuscular HGB Conc 32.0 g/dL (31.8-35.4); Mean Corpuscular Hemoglobin 30.8 pg (27.0-31.2); Mean Corpuscular Volume 96.2 fl (80-94); Nucleated Red Blood Cells % 0 %; Platelet Count 163 K/mm3 (142-424); Potassium 3.7 mmoL/L (3.5-5.1); Red Blood Count 3.99 M/mm3 (4.60-6.20); Red Cell Distribution Width-SD 45.8 fL; Sodium 138 mmol/L (136-145); White Blood Count 10.8 K/mm3 (4.8-10.8)
[2025-07-19 06:12] LABS: Blood Urea Nitrogen 19 mg/dl (9-20); Creatinine Clearance Estimated 63 mL/min (50-200); Creatinine,Serum 1.20 mg/dl (0.66-1.25); Estimated Glomerular Filt Rate 59 ml/min (>60); GFR (African American) 72 ML/MIN (>60)
[2025-07-19 06:13] LABS: Anion Gap 12.7 mEq/L (5-15); Calcium 8.5 mg/dl (8.4-10.2); Carbon Dioxide 31 mmol/L (22.0-30.0); Glucose 89 mg/dl (74-100)
[2025-07-19 06:16] LABS: Hemoglobin 12.2 g/dL (14.1-18.0)
[2025-07-19 06:22] LABS: Troponin I 0.05 ng/ml (0.00-0.034)
--- NOTE | 2025-07-19 07:46 | HMH.PHAINT1 ---
Pharmacy Intervention Comments: MEDICATION RECONCILIATION COMPLETED ON PATIENT USING EXTERNAL FILL HISTORY FROM PHARMACY. -ALISTAIR VELASQUEZ, PETERSOND
[2025-07-19] MEDS: guaiFENesin 600 MG TAB.ER.12H PO (08:13)
[2025-07-19] MEDS: AZITHROMYCIN 250MG TABLET 250 MG PO (08:13)
--- NOTE | 2025-07-19 09:00 | CA_ITS ---
APPROVED REPORT EXAM: Comprehensive 2D, Doppler, and color-flow Echocardiogram Loss Control Manager: Tiera Covington, RCS, RVS Ht: 6 ft 4 in Wt: 178lbs BSA: 2.11 BP: 127/78 mmHg Indications: Afib, URI-rhinovirus, SOB, Old DC, AICD, Hx-Ablation, HFrEF 2D Dimensions Left Atrium 3.94 cm LA Volume 42.60 mL LA Volume Index 20.603519 mL/m2 (M/F) 16-34 EF AP4 52.10 % GL Strain -17.4 % M-Mode Dimensions RVDd 3.11 cm (0.9-2.6) LA Diam 4.16 cm (1.9-4.0) LVDd 4.61 cm (3.5-5.7) LVDs 3.21 cm (3.5-5.7) IVSd 1.04 cm (0.6-1.1) PWd 1.14 cm (0.6-1.1) EF (Teich) 57.80% EPSs 0.61 cm FS 30.40% EDV (Teich) 97.80 mL TAPSE 1.79 (<1.7) ESV (Teich) 41.30 mL LV Diastology E Decel Time 160 (160-240 msec) E/A Ratio 1.62 MED A' 7.70 cm/s LAT A' 8.60 cm/s Aortic Valve DANICA Index 1.11 cm2/m2 AoV Peak Abhijeet. 190.0 (50-130 cm/s) AI PHT 218.00 ms AO Peak GR. 14.40 mmHg AO Mean GR. 7.10 (<5 mmHg) AO VTI 32.1 (18-25 cm) DANICA (VTI) 2.40 (2.5-4.5 cm2) Mitral Valve MV A Velocity 60.0 (40-130 cm/s) E/A Ratio 1.62 Tricuspid Valve TR P. Velocity 301.00 cm/s RAP Estimate 10.00 mmHg RVSP 46.20 mmHg Left Ventricle The left ventricle is normal size. Left ventricular systolic function is normal. The left ventricular ejection fraction is within the normal range. There is increased left ventricular wall thickness. The septum is asynchronous. The left ventricular diastolic function is indeterminate. LVEF is 55% Right Ventricle The right ventricle is mildly dilated. The right ventricular systolic function is normal. Atria The left atrium is moderately dilated. Right atrium is moderately dilated. There is no color Doppler evidence of interatrial shunt. Aortic Valve The aortic valve is mildly thickened. There is no hemodynamically significant aortic valvular stenosis. Moderate aortic regurgitation is present. Mitral Valve The mitral valve is mildly thickened. No evidence of mitral valve stenosis. Moderate mitral regurgitation is present. Tricuspid Valve The tricuspid valve leaflets are thin and pliable. Mild tricuspid regurgitation. RVSP 25-30 mmHg. Pulmonic Valve The pulmonary valve is grossly normal in structure. Mild pulmonic valve regurgitation is present. Great Vessels The aortic root is normal in size. IVC is normal in size and collapses >50% with inspiration. Pericardium There is a small, anterior pericardial effusion present. The largest pocket measures 0.5 cm in diastole. No echo indications of tamponade. Other Information Study Quality: Fair Conclusion Normal biventricular systolic function. Asynchronous septum. Mild RV dilation. Biatrial dilation. Moderate AI. Moderate MR. Mild TR, mild PI. Small, anterior pericardial effusion present. The largest pocket measures 0.5 cm in diastole. No echo indications of tamponade. Electronically signed by : Sanna Briones MD 07/22/2025 13:21:01
--- NOTE | 2025-07-19 09:09 | HMH.PHAAMS2 ---
- Antimicrobial Stewardship Review culture & sensitivity review Stewardship interventions: culture & sensitivity review Comments: INITIAL SPUTUM DOES NOT MEET CRITERIA , REORDERED SPUTUM. BLOOD CX PENDING. ON ROCEPHIN/AZITHROMYCIN EMPIRICIALLY FOR BACTERIAL PNEUMONIA.
--- NOTE | 2025-07-19 09:10 | EXP.ACUTE.PN ---
Subjective *Date: 07/19/25 *Time: 13:42 Interval history: Patient is feeling better this am after neb treatments. He has not needed any oxygen supplementation. He is still coughing and mildly SOA. Medical Exam Vital signs and Labs for Last 24 Hours: Vital Signs Temp Pulse Pulse Resp BP BP Pulse Ox 07/19/25 08:30 89 19 91 L 07/19/25 08:01 99.8 F H 07/19/25 08:01 91 H 19 115/54 L 90 L 07/19/25 06:46 07/19/25 06:04 82 07/19/25 06:04 97 H 07/19/25 06:04 91 L 07/19/25 05:00 07/19/25 04:00 98.7 F 77 18 125/73 93 L 07/19/25 03:00 07/19/25 02:05 93 L 07/19/25 01:41 98.6 F 85 21 127/78 95 07/19/25 01:30 97.9 F 77 20 134/75 07/19/25 01:02 81 07/18/25 23:17 86 18 145/87 H 92 L 07/18/25 22:24 92 H 18 159/97 H 94 L 07/18/25 22:22 94 L 07/18/25 22:19 98.6 F 92 H 18 159/97 H 94 L O2 Del Method 07/19/25 08:30 07/19/25 08:01 07/19/25 08:01 Room Air 07/19/25 06:46 Room Air 07/19/25 06:04 07/19/25 06:04 07/19/25 06:04 Room Air 07/19/25 05:00 Room Air 07/19/25 04:00 Room Air 07/19/25 03:00 Room Air 07/19/25 02:05 Room Air 07/19/25 01:41 Room Air 07/19/25 01:30 Room Air 07/19/25 01:02 07/18/25 23:17 Room Air 07/18/25 22:24 Room Air 07/18/25 22:22 Room Air 07/18/25 22:19 Room Air Intake and Output 07/18/25 07/19/25 07/19/25 19:59 03:59 11:59 Intake Total 250 / 685 435 / 685 Output Total 400 / 400 Balance 250 / 285 35 / 285 Intake: Intake, Oral Amount 335 / 335 Intake, Total IV Amount 250 / 350 100 / 350 Azithromycin 500 mg In 0.9 % 250 / 250 Sodium Chloride 250 ml @ 250 mls/hr IV ONCE ONE Rx#:[id number] Ceftriaxone Sodium 2 gm In 0.9 100 / 100 % Sodium Chloride 100 ml @ 200 mls/hr IV ONCE ONE Rx#:[id number] Output: Output, Urine Amount 400 / 400 Other: Number of Unmeasured Voids 0 Weight 178 lb 1.6 oz 178 lb 1.6 oz Patient Weight 07/19/25 11:59 Weight 178 lb 1.6 oz Laboratory Results - last 24 hr 07/18/25 22:20: WBC 12.8 H, RBC 4.39 L, Hgb 13.8 L, Hct 41.9 L, MCV 95.4 H, MCH 31.4 H, MCHC 32.9, RDW 12.7, Plt Count 169, MPV 10.8 H, Neut % (Auto) 81.4 H, Lymph % (Auto) 7.0 L, [place] % (Auto) 10.7 H, Eos % (Auto) 0.1, Baso % (Auto) 0.4, Neut # (Auto) 10.4 H, Lymph # (Auto) 0.9, [place] # (Auto) 1.4 H, Eos # (Auto) 0.0, Baso # (Auto) 0.1, VBG pH 7.39, VBG pCO2 42.5, VBG pO2 34.4, VBG HCO3 25.3, VBG Total CO2 26.6, VBG O2 Saturation 65.4, VBG Base Excess 0.4, VBG Lactic Acid 1.3, Sodium 133 L, Potassium 3.9, Chloride 98, Carbon Dioxide 29, Anion Gap 9.9, BUN 20, Creatinine 1.20, Estimated Creat Clear 46, Estimated GFR 59, Est GFR ( Amer) 72, Glucose 109 H, Calcium 9.2, Total Bilirubin 0.8, AST 39, ALT 20, Alkaline Phosphatase 70, Troponin I 0.06 H, NT-Pro-B Natriuret Pep 530 H, Total Protein 7.8, Albumin 4.6, Globulin 3.2, Albumin/Globulin Ratio 1.4, Lipase 15 L, HCV Ab ROBERTO w/Rflx PCR Qn Negative, HIV Ag/Ab Combo Qual Negative 07/19/25 01:11: Chlamy pneumoniae PCR Not detected, Adenovirus (PCR) Not detected, B. pertussis DNA (PCR) Not detected, Coronavirus OC43 (PCR) Not detected, Coronavirus HKU1 (PCR) Not detected, Coronavirus 229E (PCR) Not detected, SARS-CoV-2 (PCR) Not detected, Coronavirus NL63 (PCR) Not detected, Human Metapneumovir PCR Detected A, Influenza A (H1) PCR Not detected, Influ A (H1N1/09) PCR Not detected, Influenza A (H3) PCR Not detected, Influenza Type A (PCR) Not detected, Influenza Type B (PCR) Not detected, M. pneumoniae (PCR) Not detected, Parainfluenza 1 (PCR) Not detected, Parainfluenza 2 (PCR) Not detected, Parainfluenza 3 (PCR) Not detected, Parainfluenza 4 (PCR) Not detected, RSV (PCR) Not detected, Entero/Rhino (PCR) Not detected 07/19/25 01:57: Troponin I 0.05 H 07/19/25 04:37: WBC 10.8, RBC 3.99 L, Hgb 12.2 L D, Hct 38.4 L, MCV 96.2 H, MCH 30.8, MCHC 32.0, RDW 12.8, Plt Count 163, MPV 11.3 H, Neut % (Auto) 77.5, Lymph % (Auto) 10.5, [place] % (Auto) 11.1 H, Eos % (Auto) 0.0 L, Baso % (Auto) 0.6, Neut # (Auto) 8.4 H, Lymph # (Auto) 1.1, [place] # (Auto) 1.2 H, Eos # (Auto) 0.0, Baso # (Auto) 0.1, Sodium 138, Potassium 3.7, Chloride 98, Carbon Dioxide 31 H, Anion Gap 12.7, BUN 19, Creatinine 1.20, Estimated Creat Clear 63, Estimated GFR 59, Est GFR ( Amer) 72, Glucose 89, Calcium 8.5, Troponin I 0.05 H I & O for Labs for Last 24 Hours: Intake & Output 07/16/25 07/17/25 07/18/2505/25 11:59 11:59 11:59 11:59 Intake Total 685 / 685 Output Total 400 / 400 Balance 285 / 285 Weight 178 lb 1.6 oz Microbiology Reports for the Last 24 Hours: Microbiology 07/19/25 01:12 Sputum - Expectorated Sputum Gram Stain - Final Constitutional: Present no acute distress Respiratory: Present wheezes and crackles (left base) Cardiac: Present Reg Rate and Rhythm GI: Present soft and normal bowel sounds; Absent distention or tenderness Extremities: Absent edema, clubbing or cyanosis Skin: Present intact Neuro: Present alert and awake Assessment and Plan *Assessment and plan (1) Left lower lobe pneumonia: Status: Acute Qualifiers: Pneumonia type: due to unspecified organism Qualified Code(s): J18.9 - Pneumonia, unspecified organism Category: Medical Code(s): J18.9 - Pneumonia, unspecified organism (2) Leukocytosis: Status: Acute Qualifiers: Leukocytosis type: unspecified Qualified Code(s): D72.829 - Elevated white blood cell count, unspecified Category: Medical Code(s): D72.829 - Elevated white blood cell count, unspecified (3) Cough with hemoptysis: Status: Acute Category: Medical Code(s): R04.2 - Hemoptysis (4) Elevated troponin: Status: Acute Category: Medical Code(s): R79.89 - Other specified abnormal findings of blood chemistry (5) Elevated brain natriuretic peptide (BNP) level: Status: Acute Category: Medical Code(s): R79.89 - Other specified abnormal findings of blood chemistry (6) Macrocytosis: Status: Acute Category: Medical Code(s): D75.89 - Other specified diseases of blood and blood-forming organs (7) Human metapneumovirus (hMPV) pneumonia: Status: Acute Category: Medical Code(s): J12.3 - Human metapneumovirus pneumonia Plan Patient was started on zithromax and rocephin along with nebs. He is doing better and may discharge home later today. Dr. Churchill entry - Saw patient, agree with above note. Possible home later today.
--- NOTE | 2025-07-22 12:50 | SW/DCPLANNER ---
Spoke with patient on the phone. Patient stated that he is doing well. Patient stated that he is aware and will call to schedule an appointment with his pcp. 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 Patient stated that he has no concerns or questions at this time. Mary Beth Juan
--- NOTE | 2025-07-22 13:58 | EXP.DC.SUM ---
General Admission date:: 07/19/25 Discharge date: 07/19/25 HPI HPI HPI: This is a 74-year-old male who has a past medical history significant for coronary artery disease, HFrEF (patient has AICD/pacemaker set at 65), chronic kidney disease, CA, and bundle branch block who presents with a chief complaint of shortness of breath, cough, and bloody sputum. Due to patient's symptoms, he presented to the emergency room for evaluation. While in the emergency room, CT scan of the chest revealed moderate lingular infiltrate. CT scan of the abdomen and pelvis was negative for any acute intra-abdominal intrapelvic process. Patient did have elevation in his initial troponin; however, his EKG revealed ventricular paced, QTc of 412, left axis shift deviation, and negative STEMI. Due to patient's symptoms, hospital medicine was consulted for further management. During my evaluation of the patient, patient states he has been experiencing a for symptomology for 2-3 days. Patient reports that he has been having back pain that radiates to the front of his chest. He reports he has some inability to lay flat. 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 Patient states that after his pacemaker placement and cardiac ablation his cardiac symptoms improved. He has known HFrEF. Patient does not know his EF. Patient had a provocative workup performed and 2019 that showed an EF of 42%. He is currently denying any chest pain, lightheadedness, dizziness, rigors, nausea, vomiting, lower extremity swelling, headache, or diarrhea. Patient does report having a subjective fever but did not check his temperature. Additional pertinent labs obtained include a white blood cell count of 12.8, red blood cell count of 4.39, hemoglobin 13.8, hematocrit 41.9, neutrophils 81.4%, sodium 133, blood glucose 109, initial troponin 0.06, and BNP of 530. Hospital Course Hospital Course Hospital Course: On admission patient was found to have pneumonia in the left lower lobe. He was started on Rocephin and Zithromax IV. He received DuoNebs every 6 hours. The following day patient was feeling better. He had not needed any oxygen supplementation. He still had a cough and some mild shortness of air. Respiratory panel was positive for Metapneumovir PCR detected A. Patient was feeling better in the p.m. after neb treatments. He was discharged to home on cefdinir and Zithromax. Exam Data for Last 24 hours Vital signs and Labs for Last 24 Hours: Temp Pulse Resp BP Pulse Ox O2 Del Method 98.6 F 81 19 133/81 92 L Room Air 07/19/25 12:34 07/19/25 16:15 07/19/25 16:15 07/19/25 16:00 07/19/25 16:15 07/19/25 15:00 I & O for Last 24 hours: Intake & Output 07/20/25 07/21/25 07/22/25 07/23/25 11:59 11:59 11:59 11:59 Intake Total 240 / 240 Balance 240 / 240 Microbiology Reports for the Last 24 Hours: Microbiology 07/19/25 01:12 Sputum - Expectorated Sputum Gram Stain - Final 07/19/25 01:12 Sputum - Expectorated Sputum Sputum Culture - Preliminary Narrative: 07/19/2025 PE at [facility] Constitutional: Present no acute distress Respiratory: Present wheezes and crackles (left base) Cardiac: Present Reg Rate and Rhythm GI: Present soft and normal bowel sounds; Absent distention or tenderness Extremities: Absent edema, clubbing or cyanosis Skin: Present intact Neuro: Present alert and awake Results Data Completed and Pending Completed studies during hospitalization [Text1]: 07/19/2025 ECHO Conclusion Normal biventricular systolic function. Asynchronous septum. Mild RV dilation. Biatrial dilation. Moderate AI. Moderate MR. Mild TR, mild PI. Small, anterior pericardial effusion present. The largest pocket measures 0.5 cm in diastole. No echo indications of tamponade. 07/18/2025 Chest CTA IMPRESSION: Moderate findings of pneumonia in the left lower lobe and minimal lingular infiltrate 07/18/2025 CT ABD/Pelvis MPRESSION: 1. Moderate findings of left lower lobe pneumonia 2. No acute abnormality in the abdomen or pelvis. Incidental chronic findings as noted. Labs on day of discharge: Preliminary micro results at discharge 07/19/25 01:12 Sputum Culture - Preliminary Sputum - Expectorated Sputum 07/19/25 00:55 Blood Culture - Preliminary Blood NO GROWTH AFTER 48 HOURS 07/19/25 00:40 Blood Culture - Preliminary Blood NO GROWTH AFTER 48 HOURS DS: Diagnosis Discharge Diagnosis (1) Left lower lobe pneumonia: Status: Acute Code(s): J18.9 - Pneumonia, unspecified organism Qualifiers: Pneumonia type: due to unspecified organism Qualified Code(s): J18.9 - Pneumonia, unspecified organism (2) Leukocytosis: Status: Acute Code(s): D72.829 - Elevated white blood cell count, unspecified Qualifiers: Leukocytosis type: unspecified Qualified Code(s): D72.829 - Elevated white blood cell count, unspecified (3) Cough with hemoptysis: Status: Acute Code(s): R04.2 - Hemoptysis (4) Elevated troponin: Status: Acute Code(s): R79.89 - Other specified abnormal findings of blood chemistry (5) Elevated brain natriuretic peptide (BNP) level: Status: Acute Code(s): R79.89 - Other specified abnormal findings of blood chemistry (6) Macrocytosis: Status: Acute Code(s): D75.89 - Other specified diseases of blood and blood-forming organs (7) Human metapneumovirus (hMPV) pneumonia: Status: Acute Code(s): J12.3 - Human metapneumovirus pneumonia Meds Home Medications and Allergies Home Medications ?Medication ?Instructions ?Recorded ?Confirmed ?Type duloxetine 30 mg capsule,delayed 30 mg PO DAILY 08/03/18 07/19/25 History release rosuvastatin 20 mg tablet 20 mg PO HS 08/03/18 07/19/25 History bisoprolol fumarate 5 mg tablet 5 mg PO DAILY 06/23/21 07/19/25 History azithromycin 250 mg tablet 250 mg PO DIRECTED 07/19/25 07/19/25 History cefdinir 300 mg capsule 300 mg PO Q12H #10 caps 07/19/25 Rx prednisone 10 mg tablet 10 mg PO BID 07/19/25 07/19/25 History New Prescriptions to Start Prescriptions: cefdinir Marco Churchill Allergies Allergy/AdvReac Type Severity Reaction Status Date / Time Penicillins Allergy Rash Verified 07/19/25 07:26 Discharge Plan Disposition Patient Disposition: Home, Self-Care Condition: Fair Follow up Plan Follow up with: Marco Churchill MD [Primary Care Provider, Medical] - 1 week Prescriptions/Medication Reconciliation: New cefdinir 300 mg capsule 300 mg PO Q12H Qty: 10 0RF Continued rosuvastatin 20 MG tablet 20 mg PO HS duloxetine 30 MG capsule,delayed release(DR/EC) 30 mg PO DAILY bisoprolol fumarate 5 mg tablet 5 mg PO DAILY azithromycin 250 mg tablet 250 mg PO DIRECTED prednisone 10 mg tablet 10 mg PO BID Problem Reconciliation Problems Reviewed?: Yes Patient Discharge Instructions ACTIVITY: Continue current activity DIET: continue same diet Patient Instructions: DI for Pneumonia in Adults Print Language: [place] Providers Primary Care Provider: Marco Churchill Admit Provider: Jason Canada Attending Provider: Marco Churchill
== END 2025-07-19 16:53 | disposition home or self-care (01) ==
LOC: ER 23:35 → ICU 07-19 01:20
PROVIDERS: Nurse Practitioner Family; Student in an Organized Health Care Education/Training Program; Admitting Provider Student in an Organized Health Care Education/Training Program; Emergency Provider Emergency Medicine; PCP Family Medicine; Visit Provider Family Medicine
DX: J18.9 Pneumonia, unspecified organism (principal); R04.2 Hemoptysis; R79.89 Other specified abnormal findings of blood chemistry; D75.89 Other specified diseases of blood and blood-forming organs; J12.3 Human metapneumovirus pneumonia; Z95.810 Presence of automatic (implantable) cardiac defibrillator; F17.200 Nicotine dependence, unspecified, uncomplicated; Z88.0 Allergy status to penicillin; Z79.899 Other long term (current) drug therapy; I25.10 Atherosclerotic heart disease of native coronary artery without angina pectoris; I50.20 Unspecified systolic (congestive) heart failure; N18.9 Chronic kidney disease, unspecified; I25.2 Old myocardial infarction; I51.7 Cardiomegaly; J98.4 Other disorders of lung; I35.1 Nonrheumatic aortic (valve) insufficiency; I34.0 Nonrheumatic mitral (valve) insufficiency; I07.1 Rheumatic tricuspid insufficiency
CPT/HCPCS: 0223U; 36415; 71275; 74177; 80048; 80053; 82803; 83690; 83880; 84484; 85025; 86803; 87040; 87070; 87205; 87389; 93005; 93306; 94640; 99285; G0378; J0456; J0696; J1650; J7050; Q9967